=== PATIENT | male | born 1945 | race Hispanic/Latino ===

== ENCOUNTER 2024-07-18 15:04 | Inpatient (IN) | payer SELFPAY ==
[~2024-07-18] VITALS: Ht 165.1 cm; Wt 46.7 kg
--- NOTE | 2024-07-18 17:15 | HP ---
[facility] HISTORY AND PHYSICAL Date of Service: Jul 18, 2024 Time of Service: 17:15 HISTORY OF PRESENT ILLNESS: Date of service: 07/18/2024 This is 78-year-old male with past medical history of CAD, hypotension, hyperlipidemia, diabetes mellitus, history of stroke type 2 who presented to the hospital secondary to chest pain. Patient history is obtained from patient and from chart review. Patient initially presented to [facility] secondary to chest pain. Patient was previously hospitalized admission hospital around a month ago in May secondary to chest pain. During that admission patient underwent heart catheterization by Cardiology and was found to have multivessel disease. Patient is course was complicated by right lacunar infarct in the right cerebellum. Patient was recommended to recover from stroke and then follow up with Cardiothoracic surgery for consideration of CABG. Patient today presented to ER admission secondary to midsternal chest pain. Patient states the pain would radiate towards is left lower extremity. He denies any paresthesias, numbness, falls, syncopal episode, abdominal pain, nausea, vomit ing. Patient lives alone and uses a cane for ambulation. Denied any fever, chills, cough, shortness of breath, new onset upper or lower extremity weakness. Patient states he does have mild weakness on the left lower extremity. Labs and admission [facility] showed white count of 8.7, hemoglobin was 12.5, platelet count is 318k, sodium was 134, potassium was 3.6, creatinine was 0.8, blood glucose was 394. Patient was given aspirin, heparin drip. Cardiology was consulted and admission and recommended patient to be transferred to [facility] for evaluation of CABG. chest x-ray showed No acute findings Patient had undergone a previous heart catheterization by Dr. Collier on 05/29/2024 which showed 1. Left main coronary artery is medium in caliber heavily calcified with 50% distal disease. It bifurcates into left anterior descending artery and left circumflex artery. 2. Left anterior descending artery is a medium caliber vessel wrapping around the apex with 80% mid segmental disease. First diagonal is medium in caliber with mild disease not well visualized. The 2nd diagonal is tiny with 90% ostial disease. The 3rd diagonal is small in caliber with 50% disease 3. Left circumflex artery is a medium caliber vessel with 50% ostial disease. First obtuse marginal is medium in caliber with 30% mid segmental disease. Second obtuse marginal unless medium in caliber with 90% tight mid segmental disease and 40% distal disease in one of its lower branch. 4. Right coronary artery is heavily calcified in the proximal segment. It is a large caliber dominant vessel with 70% proximal disease. It gives off small to medium caliber posterior descending artery which has 50% proximal disease and 70% mid segment disease where the vessel is tortuous and proximal 50% PLV disease Patient was recommended to be evaluated in [facility] for consideration of CABG REVIEW OF SYSTEMS CONSTITUTIONAL: Denies fevers, chills, or night sweats. No unintentional weight loss reported. NEUROLOGICAL: Denies headache, amaurosis fugax, motor weakness, sensory defici t, vertigo/spinning sensation, gait abnormalities, or tremors. ENT: No hearing loss, otalgia, otorrhea, rhinitis, rhinorrhea, hoarseness, or sore throat. CARDIOVASCULAR: Positive for chest pain. Denied any Shortness of breath, PND orthopnea. PULMONARY: Denies any shortness of breath, cough, phlegm/sputum, hemoptysis, pleuritic chest pain. SLEEP: Denies morning headaches, daytime somnolence or napping. Denies difficulty falling asleep, staying asleep, waking from sleep. Denies knowledge of snoring. GASTROINTESTINAL: Denies any type of dysphagia to either liquids or solids. Denies nausea, vomiting, pyrosis, early satiety, abdominal pain, diarrhea, constipation, or changes in stool consistency or caliber. Denies coffee-ground emesis, hematemesis, hematochezia, or melanotic stools. GENITOURINARY: Denies frequency, urgency, nocturia, hematuria or incontinence (Storage/Irritative symptoms.) Low urinary stream, straining to void, urinary intermittency or hesitancy, splitting of the voiding stream, terminal dribbling. ENDOCRINOLOGIC: Denies polyuria, polydipsia, polyphagia or heat/cold intolerances. HEMATOLOGIC: Denies thrombophilia/previous clots, or coagulopathy/bleeding di sorders. ONCOLOGIC: Denies personal history of malignancy. DERMATOLOGIC: Denies rashes or pruritus. PSYCHIATRIC: Denies any suicidal or homicidal ideation. Denies hallucinations. PAST MEDICAL HISTORY: CAD, hypertension, hyperlipidemia, diabetes mellitus type 2, history of stroke with right lacunar infarct in the right cerebellum PAST SURGICAL HISTORY: History of heart catheterization PAST SOCIAL HISTORY: Denies smoking, alcohol, drug use FAMILY HISTORY: Denied any pertinent family history Coded Allergies: No Known Drug Allergies (Verified Allergy, Unknown, 07/18/24) PHYSICAL EXAM GENERAL APPEARANCE: The patient is awake, alert, and oriented, in no acute cardiopulmonary distress. NEUROLOGICAL: Cranial nerves II-XII grossly intact. Motor is 5/5 in bilateral upper and lower extremities proximal to distal. No sensory deficits. HEENT: Face is symmetric. Pupils are equal and reactive. Extraocular movements are intact. NECK: Supple. No JVD. No thyromegaly. No submental, submandibular, pre-/postauricular, occipital or supraclavicular lymphadenopathy. CHEST: Normal chest expansion. No Telemetry. LUNGS: Absence of any rales, rhonchi or any wheezing. CARDIOVASCULAR: Regular. S1 and S2 normal. No appreciable rubs, murmurs or gallops. ABDOMEN: Soft, nontender, and nondistended. There is no rebound, voluntary guarding, or rigidity. : Deferred. No [place]. EXTREMITIES: Non-edematous and not cyanotic. No clubbing. Good capillary refill. Pedal pulses are palpable SKIN: No skin breakdown. LABS: Labs have been reviewed DIAGNOSTICS / RADIOLOGY: [ ] ASSESSMENT: NSTEMI POA CAD status post left heart catheterization with multivessel disease POA History of chronic heart failure with EF of 35-40% History of right lacunar stroke in June 08, 2024 Hypertension Hyperlipidemia Diabetes mellitus type 2 Left lower extremity pain PLAN: - continue with admission in [facility] -in reference to NSTEMI. Patient will be started on heparin drip and aspirin. Consultation with Cardiology will be requested. Appreciate recommendations. We will also request consultation with CT surgery -obtain a lower extremity Doppler. Pain could be in setting of PVD versus neuropathic pain from recent stroke -start patient on amlodipine. Continue with metoprolol b.i.d.. We will titrate medication depending on blood pressure - check TSH, A1c, procaine, CRP, CBC, BMP - obtain home medications will be reconciled once available -further orders per hospitalization course. Plan of care was discussed with patient at bedside Advanced Care Planning Which of the following were discussed: Hospice care: Yes __ No _x_ Therapeutic options: Yes __ No __ Advance directives: Yes __ No __ Other discussions: Pt is full code Discussed with who?: patient (Patient, family or surrogates) Voluntary nature of this service was explained to the patient? Yes _x_ No __ Amount of time spent: 25 minutes ALMA Barrow MD, MD Jul 18, 2024 17:15
[2024-07-18] MEDS ORDERED: NITROGLYCERIN 0.4 MG SL TAB SL PRN (17:30)
[2024-07-18] MEDS ORDERED: hydrALAZine 20MG/ML VIAL IV PRN (17:30)
--- NOTE | 2024-07-18 17:33 | CONS ---
[facility] Cardiology Consultation Note CARDIOLOGY CONSULTATION JULY 18, 2024 Chief complaint: This is a 78-year-old male who was transferred from [facility] for aortocoronary bypass graft surgery. History of present illness: Patient underwent previous left heart catheterization about six weeks ago at [facility]. He was found to have significant left main disease with an ejection fraction of 35-40%. An appointment was made for him to see the CT surgeons but he was rehospitalized admission hospital because of worsening chest pain. He has been placed on heparin drip and nitrates and was transferred over for further evaluation. Past medical history: The patient had a lacunar infarct in May of this year. A repeat CT scan admission hospital showed no evidence of new infarct. He has a history of hypertension, diabetes mellitus type 2 and dyslipidemia. Review of systems: Has been having some intermittent left precordial pain. He has also been complaining of left knee pain and has to walk with a cane because of this. Denies any recent syncope PND or orthopnea. He has had some palpitations. Allergies: No known allergies Medications: At this point he is receiving heparin protocol amlodipine aspirin atorvastatin metoprolol tartrate potassium protocol and nitroglycerin p.r.n.. The patient has been receiving metformin and sacubitril as well as a nicotine patch prior to admission to [facility]. Surgical history: He denies prior surgery Social history: He used to smoke one or two cigars per week but is no longer smoking. Physical exam: Blood pressure 158 over 80. Heart rate is in the 70s and regular. There was no elevation of the jugular venous pressure left carotid bruit is noted. S1 normal S2 physiologically split. No murmur appreciable. Abdomen soft extremities show no edema. Posterior tibial pulses plus one dorsalis pedis pulses plus one. He is alert and oriented. Laboratory studies from [facility]: BUN 13 creatinine 0.8 troponin of 19 hemoglobin 12.5 platelet count [id number]. 2D echocardiogram. LV ejection fraction of 35-40%. There was mild aortic insufficiency. The aortic valve peak gradient of 7.5 mm Hg. Mild mitral regurgitation. Trace pulmonic regurgitation. Assessment: 1. Unstable angina 2. Multivessel CAD with left main involvement and LV ejection fraction of 35-40% 3. Left carotid bruit 4. History of lacunar infarcts May 2024 5. Hypertension 6. Diabetes mellitus type 2 7. Dyslipidemia Plan: 1. Surgery we will review the films and make recommendations. I will order a carotid Doppler because of his left carotid bruit. We will continue with his current regimen in the interim. WOLFGANG LOMELI MD Jul 18, 2024 17:33
[2024-07-18] MEDS ORDERED: ASPI-1005 PO (17:34)
[2024-07-18] MEDS ORDERED: METO-408 PO (17:34)
[2024-07-18] MEDS ORDERED: ATOR40TA69 PO (17:34)
[2024-07-18] MEDS ORDERED: ISOS30TA92 PO (17:34)
[2024-07-18 17:47] LABS: BASOPHILS # (AUTO) 0.05 K/uL (0.00-0.20); BASOPHILS % (AUTO) 0.6 % (0.0-5.0); EOSINOPHILS # (AUTO) 0.96 K/uL (0.00-0.70); EOSINOPHILS % (AUTO) 11.9 % (0.0-8.0); HEMATOCRIT 37.3 % (42-54); IMMATURE GRANULOCYTE ABSOLUTE 0.04 K/uL (0-1); LYMPHOCYTES # (AUTO) 1.7 K/uL (1.0-4.8); LYMPHOCYTES % (AUTO) 21.1 % (21.0-51.0); MEAN CORPUSCULAR HGB CONC 34.3 g/dL (32.0-36.0); MEAN CORPUSCULAR VOLUME 93.3 fL (79-99); MONOCYTES # (AUTO) 0.7 K/uL (0.1-1.0); MONOCYTES % (AUTO) 9.1 % (3.0-13.0); NEUTROPHILS # (AUTO) 4.6 K/uL (1.8-7.7); NEUTROPHILS % (AUTO) 56.8 % (40.0-77.0); PLATELET COUNT (AUTO) 300 K/uL (130-400); RED CELL DISTRIBUTION WIDTH 12.6 % (11.0-15.5); WHITE BLOOD COUNT (AUTO) 8.1 K/uL (4.8-10.8)
[2024-07-18 17:50] VITALS: BP 121/67; PULSE 60; RESP 18; TEMP 97.8
[2024-07-18] MEDS: HEParin 25,000 UNITS/250ML D5W 250 ML IV SCH (18:00)
[2024-07-18 18:02] LABS: HEMOGLOBIN A1C 11.9 % (4.0-6.0)
[2024-07-18 18:15] LABS: ALBUMIN 3.4 g/dL (3.5-5.0); BILIRUBIN,TOTAL 0.5 mg/dL (0.2-1.0); CREATININE 0.6 mg/dL (0.5-1.3); POTASSIUM 3.7 mmol/L (3.5-5.1); THYROID STIMULATING HORMONE 6.64 uIU/mL (0.36-3.74); TOTAL PROTEIN, SERUM 7.1 g/dL (6.0-8.3)
[2024-07-18] MEDS: amLODIPine 5 MG TAB PO ONE (18:17)
[2024-07-18 18:22] VITALS: O2SAT 100
--- NOTE | 2024-07-18 19:27 | HMCIMG ---
CHEST 1VW REASON: cHEST PAIN COMPARISON: 07/18/2024 FINDINGS: Single view of the chest was obtained. Lungs are clear. Heart size is normal. There is no pulmonary vascular congestion. Mediastinum and bony thorax appear unremarkable. IMPRESSION: 1. Normal single view chest x-ray.
--- NOTE | 2024-07-18 19:29 | HMCIMG ---
KNEE 3VWS LT REASON: knee pain TECHNIQUE: 3 views were obtained. FINDINGS: There is no evidence of fracture or dislocation. There is no joint effusion. The soft tissues appear unremarkable. There is no evidence of a radiopaque foreign body. There is mild medial joint space narrowing consistent with early osteoarthritis. IMPRESSION: No acute findings.
--- NOTE | 2024-07-18 19:42 | HMCIMG ---
HIP UNILAT 2-3VW LEFT REASON: knee pain TECHNIQUE: 2 views were obtained. FINDINGS: There is no evidence of fracture or dislocation. There is no joint effusion. The soft tissues appear unremarkable. There is no evidence of a radiopaque foreign body. IMPRESSION: No acute findings.
[2024-07-18 20:00] VITALS: O2SAT 100
[2024-07-18 20:16] VITALS: BP 115/57; PULSE 71; RESP 18; TEMP 98.2
[2024-07-18] MEDS: HEParin 5,000 UNIT VIAL IV PRN (20:48)
--- NOTE | 2024-07-18 22:04 | HMCIMG ---
US ARTERIAL BILAT LOW EXT DUPL HISTORY: Peripheral vascular disease COMPARISON: None TECHNIQUE: Bilateral lower extremity arterial Doppler ultrasound study was performed. FINDINGS: Normal triphasic and biphasic arterial waveforms are noted in the common femoral, deep femoral, superficial femoral, popliteal, posterior tibial and dorsalis pedal arteries. There is mild at this diffuse multilevel atherosclerotic plaques throughout the bilateral lower extremities On the right, the peak systolic velocity of the common femoral artery is 67 cm/s, the proximal femoral artery is 71 cm/s, the mid femoral artery is 49 cm/s, the distal femoral artery is 109 cm/s, the popliteal artery is 43 cm/s, the anterior tibial artery is 40 cm/s, the posterior tibial artery artery is 37 cm/s. On the left, the peak systolic velocity of the common femoral artery is 69 cm/s, the proximal femoral artery is 78 cm/s, the mid femoral artery is 68 cm/s, the distal femoral artery is 65 cm/s, the popliteal artery is 81 cm/s, the anterior tibial artery is 36 cm/s, the posterior tibial artery artery is 56 cm/s. IMPRESSION: 1. Atherosclerotic disease. 2. Otherwise normal triphasic and biphasic arterial waveforms noted of the lower extremity artery system.
[2024-07-18] MEDS: metoPROLOL tartRATE 25 MG TAB PO SCH (23:06)
[2024-07-18] MEDS: atorVAStatin 40 MG TABLET PO SCH (23:06)
[2024-07-18] MEDS: FAMOTIDINE 20MG VIAL IV SCH (23:06)
[2024-07-18] MEDS: INSULIN humuLIN R 100 UNIT/ML 3ML SQ SCH (23:07)
[2024-07-18] MEDS: INSULIN GLARgine 100 UNITS/ML 10 ML VIAL SQ SCH (23:09)
[2024-07-18] MEDS: NITROGLYCERIN 50MG/D5W 250ML 250 BOT IV SCH (23:12)
[2024-07-19] VITALS (43 sets, daily range): BP systolic 97–155; BP diastolic 37–78; PULSE 57–77; RESP 5–48; TEMP 97.6–99; O2SAT 98–100
[2024-07-19 02:18] LABS: BASOPHILS # (AUTO) 0.04 K/uL (0.00-0.20); BASOPHILS % (AUTO) 0.5 % (0.0-5.0); EOSINOPHILS # (AUTO) 1.04 K/uL (0.00-0.70); EOSINOPHILS % (AUTO) 11.8 % (0.0-8.0); HEMATOCRIT 33.2 % (42-54); IMMATURE GRANULOCYTE ABSOLUTE 0.04 K/uL (0-1); LYMPHOCYTES # (AUTO) 1.8 K/uL (1.0-4.8); LYMPHOCYTES % (AUTO) 20.7 % (21.0-51.0); MEAN CORPUSCULAR HEMOGLOBIN 31.9 pg (27.0-33.0); MEAN CORPUSCULAR HGB CONC 34.9 g/dL (32.0-36.0); MEAN CORPUSCULAR VOLUME 91.2 fL (79-99); MONOCYTES # (AUTO) 0.9 K/uL (0.1-1.0); NEUTROPHILS % (AUTO) 56.5 % (40.0-77.0); PLATELET COUNT (AUTO) 313 K/uL (130-400); RED BLOOD CELL COUNT(AUTO) 3.64 MIL/uL (4.50-6.20); RED CELL DISTRIBUTION WIDTH 12.7 % (11.0-15.5); WHITE BLOOD COUNT (AUTO) 8.8 K/uL (4.8-10.8)
[2024-07-19 02:26] LABS: CREATININE 0.8 mg/dL (0.5-1.3); MAGNESIUM 1.4 mg/dL (1.80-2.40); POTASSIUM 3.2 mmol/L (3.5-5.1)
--- NOTE | 2024-07-19 06:27 | EKG ---
[facility] Test Date: 2024-07-18 Test Time: 17:38:09 Pat Name: MANOJ BLANTON Department: 2CV Room: 211 1 Gender: M Balance Bridge Inspector: [id number] : 1945 Requested By: ALMA LE Order Number: [id number] Reading MD: Edwardo Moore Measurements Intervals [place] Rate: 64 P: 60 VA: 146 QRS: 47 QRSD: 84 T: 48 QT: 430 QTc: 443 Interpretive Statements Normal sinus rhythm Nonspecific T wave abnormality No previous ECG available for comparison Electronically Signed On 07-19-2024 19:56:57 CDT by Edwardo Moore Please click the below link to view image of tracing.
--- NOTE | 2024-07-19 06:27 | EKG ---
[facility] Test Date: 2024-07-18 Test Time: 21:42:49 Pat Name: MANOJ BLANTON Department: 2CV Room: 211 1 Gender: M Internal Communications Intern: [id number] : 1945 Requested By: WOLFGANG LOMELI Order Number: [id number] Reading MD: Edwardo Moore Measurements Intervals [place] Rate: 71 P: 61 ID: [id number] QRS: 43 QRSD: 86 T: -38 QT: 414 QTc: 449 Interpretive Statements Normal sinus rhythm Possible anterior injury. Abnormal QRS-T angle, consider primary T wave abnormality Compared to ECG 07/18/2024 17:38:09 No significant changes Electronically Signed On 07-19-2024 20:05:16 CDT by Edwardo Moore Please click the below link to view image of tracing.
--- NOTE | 2024-07-19 06:56 | PN ---
[facility] Cardiology Progress Note Cardiology consultation July 19 2024 Problems: 1. Non ST-elevation myocardial infarction 2. Multivessel CAD with left main involvement and LV ejection fraction of 35-40% at left heart catheterization admission hospital approximately six weeks ago 3. Left carotid bruit 4. History of lacunar infarcts May 2024 5. Hypertension 6. Diabetes mellitus type 2 7. Dyslipidemia Blood pressure this morning is ranging between 101 30 systolic heart rate is 60 per minute. The patient is in sinus rhythm. He denies any chest pain. Electrocardiogram on admission showed tall peaked T-waves in V2 which did not meet STEMI criteria. Laboratory studies [place] [address]. Repeat EKG at that time showed again child PT waves with some minimal ST elevation in V2 but did not meet STEMI criteria. Patient has been treated with intravenous nitroglycerin beta blockers and heparin and remains pain-free. Carotid Doppler study is pending. 2D echocardiogram will be ordered. Given the significant troponin rise since admission to [facility] I believe repeat catheterization is warranted prior to aortocoronary bypass graft surgery. Risks and benefits have been reviewed with the patient understands and requests to proceed. WOLFGANG LOMELI MD Jul 19, 2024 06:56
[2024-07-19] MEDS ORDERED: 0.9% NACL 500ML IV.SOLN 500 ML IV SCH (07:00)
[2024-07-19] MEDS: PoTASSium chloRIDE 20MEQ/100ML 100 ML IV PRN (07:34)
[2024-07-19] MEDS ORDERED: IOHEXOL 350 MG/ML 100ML INFUS..BTL IV ONE (08:25)
[2024-07-19] MEDS ORDERED: LIDOCAINE HCL 400MG/20ML VIAL ONE (08:25)
[2024-07-19] MEDS ORDERED: NITROGLYCERIN 50MG VIAL ONE (08:26)
[2024-07-19] MEDS ORDERED: HEParin-NS 1,000 UNIT/500 ML 1,000 ML IV ONE (08:26)
[2024-07-19] MEDS ORDERED: BIVALIRUDIN 250 MG/VIAL IV ONE (08:42)
[2024-07-19] MEDS ORDERED: FENTanyl CITRate PF 50 MCG/1 ML 2ML VIAL ONE (08:57)
[2024-07-19] MEDS ORDERED: MIDAZOLAM HCL 1 MG/ML 2ML VIAL ONE (08:58)
[2024-07-19] MEDS: amLODIPine 5 MG TAB PO SCH (09:00)
[2024-07-19] MEDS ORDERED: IOHEXOL-350 50ML VIAL IV ONE (09:04)
--- NOTE | 2024-07-19 09:13 | HMCIMG ---
US CAROTID DUPLEX REASON: H/O CVA, left carotid bruit TECHNIQUE: Exam was performed using spectral analysis and color flow imaging. FINDINGS: Color flow Doppler ultrasound shows the calcified plaque in both carotid bifurcations, mild on the left and moderate on the right. There are tortuous vessels on the right. There are elevated flow velocities and velocity ratios on the right suggesting a 50-70% stenosis. There is no hemodynamic evidence of stenosis on the left. There is antegrade flow in both vertebral arteries. RIGHT CAROTID: CCA: 38 cm/sec ICA: 94 cm/sec Ratio: ICA/CCA: 2.5 ECA: 30 cm/sec Vertebral artery: 46 cm/sec LEFT CAROTID: CCA: 53 cm/sec ICA: 59 cm/sec Ratio: ICA/CCA: 1.1 ECA: 54 cm/sec Vertebral artery: 47 cm/sec IMPRESSION: 1. Moderate calcified plaque right bifurcation, there are tortuous vessels, there are flow velocities and velocity ratios suggesting a 50-70% stenosis. 2. Mild plaque on the left without evidence of stenosis. 3. Antegrade flow in both vertebral arteries.
[2024-07-19] MEDS: ASPIRIN 81MG CHEW TAB PO SCH (09:46)
--- NOTE | 2024-07-19 09:46 | PRN ---
Cath Procedure Report CATH PROCEDURE REPORT CARDIAC CATHETERIZATION REPORT Date of Service: Jul 19, 2024 This patient was transferred for aortocoronary bypass graft [place] [address] consistent with non STEMI on admission. After informed consent he was prepped and draped in the usual fashion. He received 10 cc of 2% xylocaine in the right inguinal area. A six Tamazight sheath was introduced into the right femoral artery using modified Seldinger technique. A Sheri four right six Tamazight diagnostic catheter was advanced over guidewire to the aortic root. Wire was removed and catheter engaged into the [place] right coronary artery which was visualized multiple planes. The catheter was exchanged over a wire for a Sheri four left six Tamazight diagnostic catheter. This was advanced to the aortic root and wire was removed. The catheter was engaged in the left main coronary artery left coronary system was visualized multiple planes. The catheter was then exchanged over a wire for a pigtail catheter which was advanced over guidewire. The catheter would not cross the aortic valve and the J-wire was exchanged for a straight wire which was utilized across the valve. Left ventricular end-diastolic pressure was measured and a ventriculogram in the MALIK projection was performed. A pullback with continuous hemodynamic monitoring was performed and catheter was removed. ACT postprocedure was less than 200. A sheathogram performed and Angio-Seal closure device applied. Findings: The right coronary artery is a right-dominant vessel. There was an 80% ostial stenosis followed by a 70% proximal stenosis. The posterolateral branch has a long 50% proximal stenosis. The PDA has a proximal 50 and proximal 70% stenosis. The left main coronary artery has a 50% distal stenosis. There was a 50% ostial LAD stenosis and a long 70% ulcerated mid LAD stenosis with normal ACACIA flow. The diagonal artery was free of obstruction. There was a ramus branch which is free of obstruction. The circumflex artery has an 80% ostial stenosis. First large branching obtuse marginal artery has a proximal 80% stenosis. Left ventriculogram demonstrates mild hypokinesis of the anterior wall with global ejection fraction around 40%. There was trace mitral regurgitation. Aortic stenosis was mild with a 10 mm peak to peak gradient. Surgical opinion will be obtained. Report dictated by WOLFGANG Gates MD, MD Jul 19, 2024 09:46
[2024-07-19 10:15] LABS: ABG BASE EXCESS 3.4 mmol/L (-2.0-3.0); ABG HCO3 27.6 mmol/L (21.0-28.0); ABG OXYGEN SATURATION 96.9 % (94.0-98.0); ABG PCO2 41 mmHg (35-48); ABG PH 7.451 (7.350-7.450); CARBON MONOXIDE 0.3 % (0.5-1.5); HHb 3.1; PO2, ARTERIAL BG 94.1 mmHg (83.0-108.0); VENT MODE, BG RA (ROOM AIR)
[2024-07-19] MEDS: PoTASSium chloRIDE 20MEQ ER 20 MEQ ERTAB PO PRN (10:34)
--- NOTE | 2024-07-19 11:35 | PN ---
[facility] PROGRESS NOTE Date of Service: Jul 19, 2024 Time of Service: 11:17 SUBJECTIVE: 07/19 Pt seen at bedside, no acute events overnight. Pt seen with CV surgery at bedside, pt initially saying he does not want surgical intervention. CV surgery planning to discuss with family as well to make sure patient understands what is needed and that he is making an informed decision, will follow up with medical plan. Pt continues on Nitro and heparin drips. He is hemodynamically stable, troponins are elevated and downtrending. Vitals are otherwise unremarkable REVIEW OF SYSTEMS 12 point ROS negative unless noted in HPI PHYSICAL EXAM GENERAL APPEARANCE: The patient is awake, alert, and oriented, in no acute cardiopulmonary distress. NEUROLOGICAL: Cranial nerves II-XII grossly intact. Motor is 5/5 in bilateral upper and lower extremities proximal to distal. No sensory deficits. HEENT: Face is symmetric. Pupils are equal and reactive. Extraocular movements are intact. NECK: Supple. No JVD. No thyromegaly. No submental, submandibular, pre- /postauricular, occipital or supraclavicular lymphadenopathy. CHEST: Normal chest expansion. No Telemetry. LUNGS: Absence of any rales, rhonchi or any wheezing. CARDIOVASCULAR: Regular. S1 and S2 normal. No appreciable rubs, murmurs or gallops. ABDOMEN: Soft, nontender, and nondistended. There is no rebound, voluntary guarding, or rigidity. : Deferred. No [place]. EXTREMITIES: Non-edematous and not cyanotic. No clubbing. Good capillary refill. Pedal pulses are palpable SKIN: No skin breakdown. Vital Signs (last 8hr) Date Time Temp Pulse Resp B/P (MAP) Pulse Ox O2 Delivery O2 Flow Rate FiO2 07/19/24 08:15 61 19 133/74 98 Room Air 07/19/24 08:00 59 17 120/61 98 Room Air 07/19/24 08:00 100 Room Air* 0 21 07/19/24 07:45 60 29 121/59 98 Room Air 07/19/24 07:30 61 20 132/76 99 Room Air 07/19/24 07:15 59 29 126/67 99 Room Air 07/19/24 07:00 97.9 62 13 126/70 99 Room Air 07/19/24 06:18 60 17 129/73 98 Room Air 07/19/24 05:49 68 25 101/62 98 Room Air 07/19/24 05:33 66 22 115/72 98 Room Air 07/19/24 05:18 61 21 115/67 99 Room Air 07/19/24 05:03 57 19 108/61 97 Room Air 07/19/24 04:53 57 14 124/61 99 Room Air 07/19/24 04:36 57 19 119/65 99 Room Air 07/19/24 04:18 58 14 112/64 100 Room Air 07/19/24 04:06 60 20 115/63 99 Room Air 07/19/24 04:00 98 Room Air* 0 21 07/19/24 04:00 97.5 07/19/24 03:33 62 20 97/55 98 Room Air 07/19/24 03:33 62 20 97/55 98 07/19/24 03:18 64 23 100/37 99 Room Air LABS: Laboratory: Test 07/19/24 10:13 07/19/24 07:12 07/19/24 02:12 07/18/24 17:40 Range/Units Blood Gas Specimen Type Arterial Arterial Blood pH 7.451 H 7.350-7.450 Arterial Blood Partial Pressure CO2 41 35-48 mmHg Arterial Blood Partial Pressure O2 94.1 83.0-108.0 mmHg Arterial Blood HCO3 27.6 21.0-28.0 mmol/L Arterial Blood Oxygen Saturation 96.9 94.0-98.0 % Arterial Blood Base Excess 3.4 H -2.0-3.0 mmol/L Hemoglobin (Blood Gas) 13.0 L 13.5-17.5 g/dL Sodium (Blood Gas) 138 136-145 MMOL/L Bedside Potassium (Blood Gas) 3.9 3.4-4.5 MMOL/L Bedside Chloride (Blood Gas) 102 98-107 MMOL/L Bedside Glucose (Blood Gas) 114 H 65-95 MG/DL Bedside Ionized Calcium (Blood Gas) 1.16 1.15-1.33 MMOL/L Bedside Lactic Acid (Blood Gas) 0.79 H 0.36-0.75 MMOL/L Blood Gas Temperature 37.0 35.5-37.0 CELSIUS Blood Gas Vent Mode RA ROOM AIR FiO2 21.0 % Blood Gas Specimen Comment [facility] Whole Blood Glucose 102 # 70-110 MG/DL White Blood Count 8.8 4.8-10.8 K/uL Red Blood Count 3.64 L 4.50-6.20 MIL/uL Hemoglobin 11.6 L 14.0-18.0 g/dL Hematocrit 33.2 L 42-54 % Mean Corpuscular Volume 91.2 79-99 fL Mean Corpuscular Hemoglobin 31.9 27.0-33.0 pg Mean Corpuscular Hemoglobin Concent 34.9 32.0-36.0 g/dL Red Cell Distribution Width 12.7 11.0-15.5 % Platelet Count 313 130-400 K/uL Mean Platelet Volume 9.9 7.5-10.5 fL Immature Granulocyte % (Auto) 0.5 0-1 % Neutrophils (%) (Auto) 56.5 40.0-77.0 % Lymphocytes (%) (Auto) 20.7 L 21.0-51.0 % Monocytes (%) (Auto) 10.0 3.0-13.0 % Eosinophils (%) (Auto) 11.8 H 0.0-8.0 % Basophils (%) (Auto) 0.5 0.0-5.0 % Neutrophils # (Auto) 5.0 1.8-7.7 K/uL Lymphocytes # (Auto) 1.8 1.0-4.8 K/uL Monocytes # (Auto) 0.9 0.1-1.0 K/uL Eosinophils # (Auto) 1.04 H 0.00-0.70 K/uL Basophils # (Auto) 0.04 0.00-0.20 K/uL Absolute Immature Granulocyte (auto 0.04 0-1 K/uL Nucleated Red Blood Cells 0.0 0.0-0.19 % Activated Partial Thromboplast Time 36.2 H 26.3-35.5 SEC Sodium Level 136 136-145 mmol/L Potassium Level 3.2 L 3.5-5.1 mmol/L Chloride Level 100 L 101-111 mmol/L Carbon Dioxide Level 34 H 21-32 mmol/L Blood Urea Nitrogen 23 H 7-18 mg/dL Creatinine 0.8 0.5-1.3 mg/dL Glomerular Filtration Rate Calc 91 >90 mL/min Random Glucose 110 H 70-105 mg/dL Total Calcium 8.8 8.5-10.1 mg/dL Magnesium Level 1.40 L 1.80-2.40 mg/dL Troponin I High Sensitivity 02350 *H 4-75 ng/L Hemoglobin A1c 11.9 H 4.0-6.0 % Estimated Average Glucose (eAG) 295 H 70-126 mg/dL Total Bilirubin 0.5 0.2-1.0 mg/dL Aspartate Amino Transf (AST/SGOT) 74 H 10-37 U/L Alanine Aminotransferase (ALT/SGPT) 27 12-78 U/L Alkaline Phosphatase 107 50-136 U/L C-Reactive Protein, Quantitative 3.20 H 0.5-3.0 mg/L Total Protein 7.1 6.0-8.3 g/dL Albumin 3.4 L 3.5-5.0 g/dL Procalcitonin < 0.05 L 0.05-0.5 ng/mL Thyroid Stimulating Hormone (TSH) 6.64 H 0.36-3.74 uIU/mL Current Medications Medications (Trade) Dose Ordered Sig/Ben Route PRN Reason Start Time Stop Time Status Last Admin Dose Admin Acetaminophen (TYLenol 500MG TAB) 500 mg Q6H PRN PO MILD PAIN (1-3) 07/18/24 17:30 08/17/24 17:29 Amlodipine Besylate (NorvASC 5MG TAB) 5 mg DAILY PO 07/19/24 09:00 08/18/24 08:59 Aspirin (Aspirin 81mg Chew Tab) 81 mg DAILY PO 07/19/24 09:00 08/18/24 08:59 07/19/24 09:46 81 MG Atorvastatin Calcium (LIPItor 40MG) 40 mg HS PO 07/18/24 21:00 08/17/24 20:59 07/18/24 23:06 40 MG Famotidine (Pepcid 20mg Vial) 20 mg BID IV 07/18/24 21:00 08/17/24 20:59 07/19/24 09:46 20 MG Heparin Sodium (Porcine) (HEParin 5,000 UNIT VIAL) *calculation based on ACTUAL B... AD PRN IV HEPARIN PROTOCOL 07/18/24 18:00 08/17/24 17:59 07/18/24 20:48 3,750 UNIT Heparin Sodium/ Dextrose 250 ml @ 0 mls/hr Q6H IV 07/18/24 18:00 08/17/24 17:59 Hydralazine HCl (APRESOLine 20MG INJ) 10 mg Q6H PRN IV ADMINISTER FOR SBP > 180 07/18/24 17:30 08/17/24 17:29 Insulin Glargine (LANtus 100 UNITS/ML 10 ML VIAL) 10 units HS SQ 07/18/24 21:00 08/17/24 20:59 07/18/24 23:09 10 UNITS Insulin Human Regular (humuLIN R 100 UNIT/ML 3ML) INSULIN SLIDING SCAL... ACHS SQ 07/18/24 21:00 08/17/24 20:59 07/18/24 23:07 7 UNIT Metoprolol Tartrate (loprESSOR) 25 mg BID PO 07/18/24 21:00 08/17/24 20:59 07/18/24 23:06 25 MG Nitroglycerin (Nitrostat) 0.4 mg AD PRN SL CHEST PAIN 07/18/24 17:30 08/17/24 17:29 Nitroglycerin/ Dextrose 250 ml @ 0 mls/hr AD IV 07/18/24 22:30 08/17/24 22:29 07/18/24 23:12 0 MLS/HR Potassium Chloride 100 ml @ 100 mls/hr AD PRN IV POTASSIUM PROTOCOL 07/18/24 17:30 08/17/24 17:29 07/19/24 07:34 100 MLS/HR Potassium Chloride (K-Dur/Klor-Con 20meq) 20 meq AD PRN PO POTASSIUM PROTOCOL 07/18/24 17:30 08/17/24 17:29 07/19/24 10:35 20 MEQ Potassium Chloride (KCl 10% Elixir 20meq/15ml) 20 meq AD PRN PO POTASSIUM PROTOCOL 07/18/24 17:30 08/17/24 17:29 Sodium Chloride 500 ml @ 0 mls/hr Q0M IV 07/19/24 07:00 08/18/24 06:59 DIAGNOSTICS / RADIOLOGY: [ ] ASSESSMENT: NSTEMI POA CAD status post left heart catheterization with multivessel disease POA History of chronic heart failure with EF of 35-40% History of right lacunar stroke in June 08, 2024 Hypertension Hyperlipidemia Diabetes mellitus type 2 Left lower extremity pain PLAN: - continue ICU - Continue Heparin drip - Continue nitro drip - Continue telemetry - Continue aspirin 81mg q24h - Continue amlodipine 5mg q24h - Continue sliding scale - Continue hypoglycemia protocol - Echo pending will follow up - Cardiology consulted, appreciate recommendations - CV Surgery consulted, appreciate recommendations Disposition: Pending surgery vs medical management SELMA VELÁSQUEZ MD Jul 19, 2024 11:35
--- NOTE | 2024-07-19 16:43 | CONS ---
[facility] CONSULTATION NOTE Date Patient Seen: Jul 19, 2024 Time of Visit: 16:38 Supervising Physician: Dr. Shamar Nieves Reason for Consultation: [facility] Primary Care Physician: No PCP- uninsured Outpatient Specialists: NA Inpatient Consults: Dr. Nieves, Dr. Weaver, Dr. Simpson PROBLEM LIST: Acute chest pain secondary to below Non STEMI Status post left heart catheterization on 07/19/2023 with finding of multivessel coronary artery disease and mild aortic stenosis, LVEF 40% Multivessel coronary artery disease Hypokalemia Hyperglycemia in the setting of type 2 diabetes mellitus Hypomagnesemia History of CVA, CAD, hyperlipidemia, diabetes mellitus, hypertension, former light smoker HPI: This is a 78 year old male with past medical history of CAD, hyperlipidemia, diabetes mellitus, hypertension, CVA, former light cigarette smoker who came to [facility] from [facility] for chest pain. Patient had left heart catheterization a few weeks ago with finding of CAD. Today, patient underwent another left heart catheterization and patient was found to have CAD and patient was consulted to cardiovascular surgery. Patient is in ICU secondary to nitroglycerin drip management and NSTEMI. PAST MEDICAL HX: see above PAST SURGICAL HX: noncontributory SOCIAL HISTORY: Light tobacco use, 3 cigarette a day, smoked for only 5 years, quit many years ago Denies ETOH abuse Denies illicit drug use Coded Allergies: No Known Drug Allergies (Verified Allergy, Unknown, 07/18/24) REVIEW OF SYSTEMS: 12 point ROS reviewed with patient. Pertinent positives mentioned above. Otherwise negative. PHYSICAL EXAM: GENERAL: alert, weak, awake oriented x 3 HEENT: EOMI, Sclera non icteric, moist mucosa NECK: Supple, no JVD, trachea midline LUNGS: Clear breath sounds bilaterally. No wheezes HEART: Regular rate and rhythm. Normal S1 and S2, without murmurs ABD: Abdomen soft, nontender. Bowel sounds present EXT: No clubbing cyanosis or edema NEURO: Alert and oriented to person, follows commands Vital Signs (last 8hr) Date Time Temp Pulse Resp B/P (MAP) Pulse Ox O2 Delivery O2 Flow Rate FiO2 07/19/24 14:00 72 14 114/67 (83) 96 07/19/24 13:45 70 5 124/66 (85) 98 07/19/24 13:30 69 16 135/63 (87) 97 07/19/24 13:15 72 20 117/62 (80) 97 07/19/24 13:00 72 32 155/68 (97) 98 07/19/24 12:45 69 18 116/66 (83) 99 07/19/24 12:30 70 23 126/58 (80) 98 07/19/24 12:15 77 14 139/67 (91) 99 07/19/24 12:00 98.1 73 43 114/69 (84) 97 07/19/24 12:00 100 Room Air* 0 21 07/19/24 11:45 69 17 123/68 100 Room Air 07/19/24 11:45 69 17 123/68 (86) 100 07/19/24 11:30 63 20 138/67 100 Room Air 07/19/24 11:30 63 48 138/67 (90) 100 07/19/24 11:15 64 20 134/78 98 Room Air 07/19/24 11:15 64 31 134/78 (96) 98 07/19/24 11:00 65 18 124/65 (84) 100 07/19/24 11:00 65 18 124/65 100 Room Air 07/19/24 10:45 66 20 120/61 (80) 97 07/19/24 10:45 66 24 120/61 97 Room Air 07/19/24 10:30 66 21 115/63 98 Room Air 07/19/24 10:30 66 21 115/63 (80) 98 07/19/24 10:15 67 15 127/68 (87) 99 07/19/24 10:15 67 15 127/68 99 Room Air 07/19/24 09:45 64 21 99 LABS: Hematology Labs: Test 07/19/24 02:12 Range/Units White Blood Count 8.8 4.8-10.8 K/uL Red Blood Count 3.64 L 4.50-6.20 MIL/uL Hemoglobin 11.6 L 14.0-18.0 g/dL Hematocrit 33.2 L 42-54 % Mean Corpuscular Volume 91.2 79-99 fL Mean Corpuscular Hemoglobin 31.9 27.0-33.0 pg Mean Corpuscular Hemoglobin Concent 34.9 32.0-36.0 g/dL Red Cell Distribution Width 12.7 11.0-15.5 % Platelet Count 313 130-400 K/uL Mean Platelet Volume 9.9 7.5-10.5 fL Immature Granulocyte % (Auto) 0.5 0-1 % Neutrophils (%) (Auto) 56.5 40.0-77.0 % Lymphocytes (%) (Auto) 20.7 L 21.0-51.0 % Monocytes (%) (Auto) 10.0 3.0-13.0 % Eosinophils (%) (Auto) 11.8 H 0.0-8.0 % Basophils (%) (Auto) 0.5 0.0-5.0 % Neutrophils # (Auto) 5.0 1.8-7.7 K/uL Lymphocytes # (Auto) 1.8 1.0-4.8 K/uL Monocytes # (Auto) 0.9 0.1-1.0 K/uL Eosinophils # (Auto) 1.04 H 0.00-0.70 K/uL Basophils # (Auto) 0.04 0.00-0.20 K/uL Absolute Immature Granulocyte (auto 0.04 0-1 K/uL Nucleated Red Blood Cells 0.0 0.0-0.19 % Chemistry Labs: Test 07/19/24 11:52 07/19/24 02:12 07/18/24 17:40 Range/Units Whole Blood Glucose 217 #H 70-110 MG/DL Sodium Level 136 136-145 mmol/L Potassium Level 3.2 L 3.5-5.1 mmol/L Chloride Level 100 L 101-111 mmol/L Carbon Dioxide Level 34 H 21-32 mmol/L Blood Urea Nitrogen 23 H 7-18 mg/dL Creatinine 0.8 0.5-1.3 mg/dL Glomerular Filtration Rate Calc 91 >90 mL/min Random Glucose 110 H 70-105 mg/dL Total Calcium 8.8 8.5-10.1 mg/dL Magnesium Level 1.40 L 1.80-2.40 mg/dL Troponin I High Sensitivity 76047 *H 4-75 ng/L Hemoglobin A1c 11.9 H 4.0-6.0 % Estimated Average Glucose (eAG) 295 H 70-126 mg/dL Total Bilirubin 0.5 0.2-1.0 mg/dL Aspartate Amino Transf (AST/SGOT) 74 H 10-37 U/L Alanine Aminotransferase (ALT/SGPT) 27 12-78 U/L Alkaline Phosphatase 107 50-136 U/L C-Reactive Protein, Quantitative 3.20 H 0.5-3.0 mg/L Total Protein 7.1 6.0-8.3 g/dL Albumin 3.4 L 3.5-5.0 g/dL Procalcitonin < 0.05 L 0.05-0.5 ng/mL Thyroid Stimulating Hormone (TSH) 6.64 H 0.36-3.74 uIU/mL Coagulation Labs: Test 07/19/24 10:48 Range/Units Activated Partial Thromboplast Time 28.2 26.3-35.5 SEC DIAGNOSTICS / RADIOLOGY RESULTS: [ ] PLAN NEURO: Minimize central acting medications as possible. Fall Precautions. Well lighted room through the day and minimize interruptions through the night to prevent acute delirium. PULMONARY: Supplemental 02 as needed Titrate Fio2 to keep Spo2 > or = 90% DuoNebs and CPT as needed IS hourly while awake for pulmonary hygiene Out of bed to chair as tolerated VAP Bundle CARDIOVASCULAR: Follow hemodynamics. Titrate vasopressor to keep MAP >65 or systolic blood pressure >95mmHg DRIPS: Nitroglycerin Heparin LINES: PIV GI & NUTRITION: Continue nutritional support Aspirations precautions Prokinetic agents and laxatives as needed KIDNEYS & ELECTROLYTES: Strict monitoring of intake and output Daily weights Avoid nephrotoxic agents Monitor electrolytes and replace as needed Goal urine output of 30mL/hr or 0.5mL/kg/hr ENDOCRINE: Maintain blood glucose between 100-180 at all times. Insulin sliding scale for blood glucose management INFECTIOUS DISEASE: Trend temperature. Dozier-culture if febrile. Micro: NA Antibiotics: NA HEMATOLOGY & COAGULATION: Monitor H&H. Keep Hgb > 7 Transfuse 1 unit of PRBC for Hgb < 7 Transfuse 1 pack of platelets of platelets < 20, 000 Watch for any signs and symptoms of bleeding SKIN: Pressure ulcer prevention per facility protocol Rehab: PT/OT Prophylaxis: GI: Pepcid DVT: Heparin Code Status: Full Resuscitation Disposition: Downgrade to PCCU if off NTG drip and stable Other: Total patient care time exceeds 35 minutes excluding all procedures. Case was discussed and seen with my supervising physician. The above plan was formulated and agreed upon. S[facility]IDO [facility] Jul 19, 2024 16:43
--- NOTE | 2024-07-19 19:29 | HMCSR ---
APPROVED REPORT EXAM: Two-dimensional and M-mode echocardiogram with Doppler and color Doppler. Study Details: Hx: CAD, hypotension, hyperlipidemia, diabetes mellitus, stroke INDICATION ICD: NSTEMI 2D Dimensions RVDd3.0 cmLVEF(%)49.6 (>50%)LA ESV INDEX (4CH)22.40 mL/m2 IVSd0.8 (0.7-1.1cm)FS(%)25 % LVDd4.8 (3.8-5.6cm)LA (2D)3.1 (1.6-4.0cm) PWd1.0 (0.7-1.1cm)Ao Root(2D)3.6 (2.0-3.7cm) IVSs1.3 cmLVOT diam2.3 (1.8-2.4cm) LVDs3.6 (2.5-4.0cm)IVC diam1.5 cm PWs1.2 cm M-Mode Dimensions EPSS1.3 cm LA (MM)2.5 (1.6-4.0cm) Ao Root(MM)2.7 (2.0-3.7cm) Aortic Valve AoV VTI0.4 mAo Mean GR7.0 mmHgLVOT VTI0.15 m NATASHA (VMAX)1.5 cm2AVA (VTI) 1.5 cm2 Mitral Valve MV E Vmax54.8 cm/sDECEL Ipzz683 ms MV A Vmax56.8 cm/sP 1/2 T76 ms E/A ratio1.0MVA (PHT)2.9 cm2 TDI E/E' Iogjpd70.6E/E' Lzfmjkm22.7 Medial E' Peak V3.30 cm/sLateral E' Peak V3.50 cm/s Tricuspid Valve RAP (EST) 8 mmHgRVSP8.0 mmHg Left Ventricle Left ventricular cavity size is normal. Global hypokinesia. There is normal left ventricular wall thi ckness. LVEF is 35-40%. Right Ventricle The right ventricle is normal size. The right ventricular systolic function is normal. Atria The left atrium size is normal. The right atrium size is normal. Aortic Valve Aortic valve is trileaflet, thickened and calcified with restricted opening. Left coronary cusp leafl et is heavily calcified with no excursion. Non coronary cusp leaflet is heavily calcifed with very li mited excursion. Trace of aortic regurgitation is present. Visually moderate aortic stenosis. Gradien ts are underestimated due low flow. Mitral Valve Anterior mitral valve leaflet appears mildly prolapsed. The mitral valve is mildly thickened. There i s trace of mitral valve regurgitation noted. There is no mitral valve stenosis. Tricuspid Valve The tricuspid valve leaflets appear normal. There is no tricuspid valve regurgitation noted. Pulmonic Valve Pulmonic valve is not well visualized. There is no pulmonic valvular regurgitation. Great Vessels The aortic root is normal in size. IVC is normal in size and collapses <50% with inspiration. Pericardium No pericardial effusion. Other Information Quality : Fair Conclusion LVEF is 35-40%. Global hypokinesia. Aortic valve is trileaflet, thickened and calcified with restricted opening. Left coronary cusp leafl et is heavily calcified with no excursion. Non coronary cusp leaflet is heavily calcifed with very li mited excursion. Visually moderate aortic stenosis. Gradients are underestimated due low flow. Trace of aortic regurgitation is present. There is trace of mitral valve regurgitation noted.
--- NOTE | 2024-07-19 21:13 | CONS ---
TIME: 10 a.m. HISTORY OF PRESENT ILLNESS: The patient 78-year-old gentleman who presented with what appears to be a Non-STEMI and troponin level of 73,000. He was found to have 3-vessel coronary artery disease. No recent catheterization. Echocardiogram showed low flow, low gradient aortic stenosis. Cardiac surgery was consulted for further management. PHYSICAL EXAMINATION: NEUROLOGIC: The patient is mildly confused, but no deficits. CARDIOVASCULAR: S1, S2, regular rate and rhythm. RESPIRATORY: Clear to auscultation bilaterally. Overall, the patient is very frail and cachectic and deconditioned, had a recent stroke. ASSESSMENT AND PLAN: This is a 78-year-old gentleman who sustained a recent stroke a month and a half ago. He is quite frail and debilitated, appears to be needing a coronary artery bypass grafting, aortic valve replacement. I talked to him and the son. He does not want to be operated on at this time. He feels like he is weak and he does not want surgery. I explained to him the risks however, and the benefits however, I do see a point. He is a very frail man, ____ stamina at this point to tolerate a big open heart surgery. We agreed that he will need a dobutamine stress echo to assess the aortic valve with low gradient aortic stenosis and in the future we can see him as an outpatient for aortic valve replacement and coronary artery bypass grafting. Thank you very much for the consultation. TID: [id number] RECEIPT: [id number]
[2024-07-19] MEDS: HEParin 1,000 UNIT VIAL IVP ONE (21:14)
[2024-07-20] VITALS (11 sets, daily range): BP systolic 105–153; BP diastolic 54–74; PULSE 62–76; RESP 16–45; TEMP 97.3–98.6; O2SAT 100
--- NOTE | 2024-07-20 06:15 | PN ---
[facility] Cardiology Progress Note CARDIOLOGY PROGRESS NOTE JULY 20, 2024 Problems: 1. Non ST-elevation myocardial infarction 2. Multivessel CAD with left main involvement and LV ejection fraction of 40% and mild aortic stenosis with a 10 mm peak gradient and left heart catheterization 3. Left carotid bruit 4. History of lacunar infarcts May 2024 5. Hypertension 6. Diabetes mellitus type 2 7. Dyslipidemia This patient was accepted in transfer from [facility] by the surgical service for aortocoronary bypass graft surgery. He has a history of a lacunar infarct in May of 2024 with good neurologic recovery. Catheterization six weeks ago admission hospital demonstrated multivessel CAD with left main involvement. An appointment was made at that time for him to see the surgical service for aortocoronary bypass graft surgery. There was also some concern at that time about low-flow severe aortic stenosis. In the interim continued to have intermittent chest pain. This worsened for three days just prior to his readmission to [facility]. He was treated at that time with aspirin beta blockers and heparin. Surgical service was contacted and he was accepted in transfer. On arrival here his electrocardiogram showed hyperacute T-waves in V2 and he had significant troponin elevation consistent with a non ST elevation myocardial infarction. Intravenous nitroglycerin was added to his regimen. Repeat catheterization showed ostial RCA stenosis left main disease and severe mid LAD disease and obtuse marginal artery disease. LV ejection fraction is around 40% with some mild hypokinesis of the anterior wall. He had a peak gradient of 10 mm Hg across the aortic valve. He has a left carotid bruit but Doppler actually indicates a 50-70% stenosis on the right side. 2D echo this admission shows ejection fraction of 35-40%. His mean gradient across the aortic valve was7 mm Hg with a valve area of 1.5 centimeters2. He was evaluated yesterday by the CT Surgical Service and because of frail status is not felt to be a surgical candidate at this time. They would advise medical management follow up with them as an outpatient and dobutamine stress echo as an outpatient to further assess his aortic valve. At this point given his non ST elevation myocardial infarction and critical left main and ostial RCA disease we can not offer him much in the way of percutaneous revascularization. Medical management is not likely to protect him. I would advise that we have a discussion with the patient and his son about DNR status and possible palliative care. In the int erim we were try to taper off his intravenous nitroglycerin. We will discontinue heparin protocol and place him on Lovenox for DVT prophylaxis. Prognosis is grim. This morning blood pressure is running 130 systolic heart rate in the 60s he is afebrile. No new labs are available. He continues on amlodipine aspirin atorvastatin heparin insulin scale metoprolol tartrate potassium protocol. As there are no immediate plans for surgery we will load the patient with clopidogrel. As noted prognosis is extremely poor. 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 WOLFGANG LOMELI MD Jul 20, 2024 06:15
[2024-07-20 06:43] LABS: BASOPHILS # (AUTO) 0.03 K/uL (0.00-0.20); BASOPHILS % (AUTO) 0.4 % (0.0-5.0); EOSINOPHILS # (AUTO) 1.02 K/uL (0.00-0.70); EOSINOPHILS % (AUTO) 13.2 % (0.0-8.0); HEMATOCRIT 34.3 % (42-54); IMMATURE GRANULOCYTE ABSOLUTE 0.02 K/uL (0-1); LYMPHOCYTES % (AUTO) 25.9 % (21.0-51.0); MEAN CORPUSCULAR HGB CONC 35.3 g/dL (32.0-36.0); MEAN CORPUSCULAR VOLUME 90.7 fL (79-99); MONOCYTES # (AUTO) 0.8 K/uL (0.1-1.0); MONOCYTES % (AUTO) 9.9 % (3.0-13.0); NEUTROPHILS # (AUTO) 3.9 K/uL (1.8-7.7); NEUTROPHILS % (AUTO) 50.3 % (40.0-77.0); PLATELET COUNT (AUTO) 272 K/uL (130-400); RED BLOOD CELL COUNT(AUTO) 3.78 MIL/uL (4.50-6.20); RED CELL DISTRIBUTION WIDTH 12.9 % (11.0-15.5); WHITE BLOOD COUNT (AUTO) 7.7 K/uL (4.8-10.8)
[2024-07-20] MEDS: cloPIDOgrel 300MG TAB PO ONE (06:47)
[2024-07-20 06:57] LABS: CREATININE 0.6 mg/dL (0.5-1.3); MAGNESIUM 1.4 mg/dL (1.80-2.40); PHOSPHORUS 3.4 mg/dL (2.5-4.9); POTASSIUM 3.5 mmol/L (3.5-5.1)
[2024-07-20] MEDS: ISOSORBIDE MONO 30MG SR TAB PO SCH (08:38)
[2024-07-20] MEDS: ENOXAPARIN SODIUM 30 MG/0.3 ML SQ SCH (08:38)
[2024-07-20] MEDS: MAGNESIUM 2GM PREMIX 50ML 50 ML IV PRN (09:46)
--- NOTE | 2024-07-20 10:42 | PN ---
[facility] PROGRESS NOTE Date Patient Seen: Jul 20, 2024 Time of Visit: 10:39 Supervising Physician: Dr. Ge Primary Care Physician: No PCP- uninsured Outpatient Specialists: NA Inpatient Consults: Dr. Nieves, Dr. Weaver, Dr. Simpson PROBLEM LIST: Acute chest pain secondary to below Non STEMI Status post left heart catheterization on 07/19/2023 with finding of multivessel coronary artery disease and mild aortic stenosis, LVEF 40% Multivessel coronary artery disease Hypokalemia Generalized body weakness Hyperglycemia in the setting of type 2 diabetes mellitus Hypomagnesemia History of CVA, CAD, hyperlipidemia, diabetes mellitus, hypertension, former light smoker INTERVAL HISTORY: 07/20 patient is awake alert and oriented x3 wanting to get up to the recliner tired of being in bed. Otherwise he has no chest pain. He is off nitroglycerin drip and has been downgraded to PCU yesterday. Lab this morning is unremarkable. Continue with aspirin statin. Echocardiogram is done with EF of 35%. Start patient on beta-cooper and diuretic. Patient is not a good candidate for surgery CABG and valve surgery at this time given frailty and weakness. Heparin drip has been discontinued and switched to lovenox ppx per Cardiology. Obtain physical therapy eval and treat. DC planning. REVIEW OF SYSTEMS: 12 point ROS reviewed with patient. Pertinent positives mentioned above. Otherwise negative. PHYSICAL EXAM: GENERAL: alert, weak, awake oriented x 3 HEENT: EOMI, Sclera non icteric, moist mucosa NECK: Supple, no JVD, trachea midline LUNGS: Clear breath sounds bilaterally. No wheezes HEART: Regular rate and rhythm. Normal S1 and S2, without murmurs ABD: Abdomen soft, nontender. Bowel sounds present EXT: No clubbing cyanosis or edema NEURO: Alert and oriented to person, follows commands Vital Signs (last 8hr) Date Time Temp Pulse Resp B/P (MAP) Pulse Ox O2 Delivery O2 Flow Rate FiO2 07/20/24 09:48 71 21 116/64 79 Room Air 07/20/24 09:10 71 28 153/72 78 Room Air 07/20/24 07:48 76 32 136/74 78 Room Air 07/20/24 07:35 98.4 66 45 137/70 Room Air 07/20/24 04:00 98.6 66 19 129/54 98 Room Air LABS: Hematology Labs: Test 07/20/24 06:30 Range/Units White Blood Count 7.7 4.8-10.8 K/uL Red Blood Count 3.78 L 4.50-6.20 MIL/uL Hemoglobin 12.1 L 14.0-18.0 g/dL Hematocrit 34.3 L 42-54 % Mean Corpuscular Volume 90.7 79-99 fL Mean Corpuscular Hemoglobin 32.0 27.0-33.0 pg Mean Corpuscular Hemoglobin Concent 35.3 32.0-36.0 g/dL Red Cell Distribution Width 12.9 11.0-15.5 % Platelet Count 272 130-400 K/uL Mean Platelet Volume 10.2 7.5-10.5 fL Immature Granulocyte % (Auto) 0.3 0-1 % Neutrophils (%) (Auto) 50.3 40.0-77.0 % Lymphocytes (%) (Auto) 25.9 21.0-51.0 % Monocytes (%) (Auto) 9.9 3.0-13.0 % Eosinophils (%) (Auto) 13.2 H 0.0-8.0 % Basophils (%) (Auto) 0.4 0.0-5.0 % Neutrophils # (Auto) 3.9 1.8-7.7 K/uL Lymphocytes # (Auto) 2.0 1.0-4.8 K/uL Monocytes # (Auto) 0.8 0.1-1.0 K/uL Eosinophils # (Auto) 1.02 H 0.00-0.70 K/uL Basophils # (Auto) 0.03 0.00-0.20 K/uL Absolute Immature Granulocyte (auto 0.02 0-1 K/uL Nucleated Red Blood Cells 0.0 0.0-0.19 % Chemistry Labs: Test 07/20/24 06:30 07/20/24 06:25 07/19/24 02:12 07/18/24 17:40 Range/Units Sodium Level 137 136-145 mmol/L Potassium Level 3.5 3.5-5.1 mmol/L Chloride Level 102 101-111 mmol/L Carbon Dioxide Level 27 21-32 mmol/L Blood Urea Nitrogen 27 H 7-18 mg/dL Creatinine 0.6 0.5-1.3 mg/dL Glomerular Filtration Rate Calc 99 >90 mL/min Random Glucose 155 H 70-105 mg/dL Total Calcium 8.6 8.5-10.1 mg/dL Phosphorus Level 3.4 2.5-4.9 mg/dL Magnesium Level 1.40 L 1.80-2.40 mg/dL Whole Blood Glucose 152 #H 70-110 MG/DL Troponin I High Sensitivity 55338 *H 4-75 ng/L Hemoglobin A1c 11.9 H 4.0-6.0 % Estimated Average Glucose (eAG) 295 H 70-126 mg/dL Total Bilirubin 0.5 0.2-1.0 mg/dL Aspartate Amino Transf (AST/SGOT) 74 H 10-37 U/L Alanine Aminotransferase (ALT/SGPT) 27 12-78 U/L Alkaline Phosphatase 107 50-136 U/L C-Reactive Protein, Quantitative 3.20 H 0.5-3.0 mg/L Total Protein 7.1 6.0-8.3 g/dL Albumin 3.4 L 3.5-5.0 g/dL Procalcitonin < 0.05 L 0.05-0.5 ng/mL Thyroid Stimulating Hormone (TSH) 6.64 H 0.36-3.74 uIU/mL Coagulation Labs: Test 07/20/24 06:30 Range/Units Activated Partial Thromboplast Time 67.6 #H 26.3-35.5 SEC DIAGNOSTICS / RADIOLOGY RESULTS: [ ] PLAN NEURO: Minimize central acting medications as possible. Maintain fall precautions, adequate lighting during the day PULMONARY: Supplemental 02 as needed. Maintain aspiration precautions at all times CARDIOVASCULAR: Follow hemodynamics. Vital signs per facility protocol Cardiology CV surgery GI & NUTRITION: Continue with nutritional support. Continue stool softeners and laxatives as needed. KIDNEYS & ELECTROLYTES: Strict monitoring of intake, output and overall fluid balance. Avoid nephrotoxic medications to the extent possible. Medications to be dosed according to renal function. Monitor electrolytes and replace as needed ENDOCRINE: Maintain blood glucose between 100-180 at all times. Hypoglycemia protocol in place INFECTIOUS DISEASE: Trend temperature, WBC and procalcitonin level Follow cultures, deescalate antibiotics as soon as possible. Panculture if new onset fever ONCOLOGY/HEMATOLOGY/COAGULATION: Monitor for s/s of bleeding Monitor hemoglobin, coagulation studies as needed SKIN: Pressure ulcer prevention per facility protocol Specialty mattress ORTHO/REHAB: Continue PT/OT Prophylaxis: Continue GI and DVT prophylaxis Code Status: Full Resuscitation Disposition: PCCU Other: Total patient care time exceeds 35 minutes excluding all procedures. SONIDO VIDAL CNP Jul 20, 2024 10:42
--- NOTE | 2024-07-20 14:51 | PN ---
[facility] PROGRESS NOTE Date of Service: Jul 20, 2024 Time of Service: 14:42 SUBJECTIVE: 07/19 Pt seen at bedside, no acute events overnight. Pt seen with CV surgery at bedside, pt initially saying he does not want surgical intervention. CV surgery planning to discuss with family as well to make sure patient understands what is needed and that he is making an informed decision, will follow up with medical plan. Pt continues on Nitro and heparin drips. He is hemodynamically stable, troponins are elevated and downtrending. Vitals are otherwise unremarkable 07/20 Pt seen at bedside, no acute events overnight. Pt initially deferred surg keke however cardiology discussed with patient that he likely has a poor prognosis with just medical management. Pt decided he would like to have surgery. CV surgery will be contacted to assess once again. He has been afebrile, hemodynamically stable, saturating well on room air. Echo showing decreased EF 35-40% with heavily calcified aortic stenosis. REVIEW OF SYSTEMS 12 point ROS negative unless noted in HPI PHYSICAL EXAM GENERAL APPEARANCE: The patient is awake, alert, and oriented, in no acute cardiopulmonary distress. NEUROLOGICAL: Cranial nerves II-XII grossly intact. Motor is 5/5 in bilateral upper and lower extremities proximal to distal. No sensory deficits. HEENT: Face is symmetric. Pupils are equal and reactive. Extraocular movements are intact. NECK: Supple. No JVD. No thyromegaly. No submental, submandibular, pre- /postauricular, occipital or supraclavicular lymphadenopathy. CHEST: Normal chest expansion. No Telemetry. LUNGS: Absence of any rales, rhonchi or any wheezing. CARDIOVASCULAR: Regular. S1 and S2 normal. No appreciable rubs, murmurs or g allops. ABDOMEN: Soft, nontender, and nondistended. There is no rebound, voluntary gua rding, or rigidity. : Deferred. No [place]. EXTREMITIES: Non-edematous and not cyanotic. No clubbing. Good capillary refill. Pedal pulses are palpable SKIN: No skin breakdown. Vital Signs (last 8hr) Date Time Temp Pulse Resp B/P (MAP) Pulse Ox O2 Delivery O2 Flow Rate FiO2 07/20/24 11:53 98.2 72 16 105/65 98 Room Air 07/20/24 09:48 71 21 116/64 79 Room Air 07/20/24 09:10 71 28 153/72 78 Room Air 07/20/24 07:48 76 32 136/74 78 Room Air 07/20/24 07:35 98.4 66 45 137/70 Room Air 07/20/24 07:00 100 Room Air* 0 21 LABS: Laboratory: Test 07/20/24 11:22 07/20/24 06:30 07/19/24 10:13 07/19/24 02:12 Range/Units Whole Blood Glucose 282 #H 70-110 MG/DL White Blood Count 7.7 4.8-10.8 K/uL Red Blood Count 3.78 L 4.50-6.20 MIL/uL Hemoglobin 12.1 L 14.0-18.0 g/dL Hematocrit 34.3 L 42-54 % Mean Corpuscular Volume 90.7 79-99 fL Mean Corpuscular Hemoglobin 32.0 27.0-33.0 pg Mean Corpuscular Hemoglobin Concent 35.3 32.0-36.0 g/dL Red Cell Distribution Width 12.9 11.0-15.5 % Platelet Count 272 130-400 K/uL Mean Platelet Volume 10.2 7.5-10.5 fL Immature Granulocyte % (Auto) 0.3 0-1 % Neutrophils (%) (Auto) 50.3 40.0-77.0 % Lymphocytes (%) (Auto) 25.9 21.0-51.0 % Monocytes (%) (Auto) 9.9 3.0-13.0 % Eosinophils (%) (Auto) 13.2 H 0.0-8.0 % Basophils (%) (Auto) 0.4 0.0-5.0 % Neutrophils # (Auto) 3.9 1.8-7.7 K/uL Lymphocytes # (Auto) 2.0 1.0-4.8 K/uL Monocytes # (Auto) 0.8 0.1-1.0 K/uL Eosinophils # (Auto) 1.02 H 0.00-0.70 K/uL Basophils # (Auto) 0.03 0.00-0.20 K/uL Absolute Immature Granulocyte (auto 0.02 0-1 K/uL Nucleated Red Blood Cells 0.0 0.0-0.19 % Activated Partial Thromboplast Time 67.6 #H 26.3-35.5 SEC Sodium Level 137 136-145 mmol/L Potassium Level 3.5 3.5-5.1 mmol/L Chloride Level 102 101-111 mmol/L Carbon Dioxide Level 27 21-32 mmol/L Blood Urea Nitrogen 27 H 7-18 mg/dL Creatinine 0.6 0.5-1.3 mg/dL Glomerular Filtration Rate Calc 99 >90 mL/min Random Glucose 155 H 70-105 mg/dL Total Calcium 8.6 8.5-10.1 mg/dL Phosphorus Level 3.4 2.5-4.9 mg/dL Magnesium Level 1.40 L 1.80-2.40 mg/dL Blood Gas Specimen Type Arterial Arterial Blood pH 7.451 H 7.350-7.450 Arterial Blood Partial Pressure CO2 41 35-48 mmHg Arterial Blood Partial Pressure O2 94.1 83.0-108.0 mmHg Arterial Blood HCO3 27.6 21.0-28.0 mmol/L Arterial Blood Oxygen Saturation 96.9 94.0-98.0 % Arterial Blood Base Excess 3.4 H -2.0-3.0 mmol/L Hemoglobin (Blood Gas) 13.0 L 13.5-17.5 g/dL Sodium (Blood Gas) 138 136-145 MMOL/L Bedside Potassium (Blood Gas) 3.9 3.4-4.5 MMOL/L Bedside Chloride (Blood Gas) 102 98-107 MMOL/L Bedside Glucose (Blood Gas) 114 H 65-95 MG/DL Bedside Ionized Calcium (Blood Gas) 1.16 1.15-1.33 MMOL/L Bedside Lactic Acid (Blood Gas) 0.79 H 0.36-0.75 MMOL/L Blood Gas Temperature 37.0 35.5-37.0 CELSIUS Blood Gas Vent Mode RA ROOM AIR FiO2 21.0 % Blood Gas Specimen Comment RR [facility] Troponin I High Sensitivity 69520 *H 4-75 ng/L Test 07/18/24 17:40 Range/Units Hemoglobin A1c 11.9 H 4.0-6.0 % Estimated Average Glucose (eAG) 295 H 70-126 mg/dL Total Bilirubin 0.5 0.2-1.0 mg/dL Aspartate Amino Transf (AST/SGOT) 74 H 10-37 U/L Alanine Aminotransferase (ALT/SGPT) 27 12-78 U/L Alkaline Phosphatase 107 50-136 U/L C-Reactive Protein, Quantitative 3.20 H 0.5-3.0 mg/L Total Protein 7.1 6.0-8.3 g/dL Albumin 3.4 L 3.5-5.0 g/dL Procalcitonin < 0.05 L 0.05-0.5 ng/mL Thyroid Stimulating Hormone (TSH) 6.64 H 0.36-3.74 uIU/mL Current Medications Medications (Trade) Dose Ordered Sig/Ben Route PRN Reason Start Time Stop Time Status Last Admin Dose Admin Acetaminophen (TYLenol 500MG TAB) 500 mg Q6H PRN PO MILD PAIN (1-3) 07/18/24 17:30 08/17/24 17:29 Amlodipine Besylate (NorvASC 5MG TAB) 5 mg DAILY PO 07/19/24 09:00 08/18/24 08:59 Aspirin (Aspirin 81mg Chew Tab) 81 mg DAILY PO 07/19/24 09:00 08/18/24 08:59 07/20/24 08:38 81 MG Atorvastatin Calcium (LIPItor 40MG) 40 mg HS PO 07/18/24 21:00 08/17/24 20:59 07/19/24 20:29 40 MG Clopidogrel Bisulfate (plaVIX 75MG) 75 mg DAILY PO 07/21/24 09:00 08/20/24 08:59 Enoxaparin Sodium (Lovenox) 30 mg DAILY SQ 07/20/24 09:00 08/19/24 08:59 07/20/24 08:38 30 MG Famotidine (Pepcid 20mg Vial) 20 mg BID IV 07/18/24 21:00 08/17/24 20:59 07/20/24 08:39 20 MG Heparin Sodium (Porcine) (HEParin 5,000 UNIT VIAL) *calculation based on ACTUAL B... AD PRN IV HEPARIN PROTOCOL 07/18/24 18:00 07/20/24 06:21 DC 07/19/24 12:06 3,750 UNIT Heparin Sodium/ Dextrose 250 ml @ 0 mls/hr Q6H IV 07/18/24 18:00 07/20/24 06:21 DC 07/19/24 18:24 11 MLS/HR Hydralazine HCl (APRESOLine 20MG INJ) 10 mg Q6H PRN IV ADMINISTER FOR SBP > 180 07/18/24 17:30 08/17/24 17:29 Insulin Glargine (LANtus 100 UNITS/ML 10 ML VIAL) 10 units HS SQ 07/18/24 21:00 08/17/24 20:59 07/18/24 23:09 10 UNITS Insulin Human Regular (humuLIN R 100 UNIT/ML 3ML) INSULIN SLIDING SCAL... ACHS SQ 07/18/24 21:00 08/17/24 20:59 07/20/24 11:54 6 UNIT Isosorbide Mononitrate (Imdur 30mg Sr) 30 mg DAILY PO 07/20/24 09:00 08/19/24 08:59 07/20/24 08:38 30 MG Magnesium Sulfate 50 ml @ 0 mls/hr PROTOCOL PRN IV MAGNESIUM PROTOCOL 07/20/24 10:00 08/19/24 09:59 07/20/24 09:46 25 MLS/HR Metoprolol Tartrate (loprESSOR) 25 mg BID PO 07/18/24 21:00 08/17/24 20:59 07/19/24 20:31 25 MG Nitroglycerin (Nitrostat) 0.4 mg AD PRN SL CHEST PAIN 07/18/24 17:30 08/17/24 17:29 Nitroglycerin/ Dextrose 250 ml @ 0 mls/hr AD IV 07/18/24 22:30 07/20/24 06:21 DC 07/18/24 23:12 0 MLS/HR Potassium Chloride 100 ml @ 100 mls/hr AD PRN IV POTASSIUM PROTOCOL 07/18/24 17:30 08/17/24 17:29 07/19/24 07:34 100 MLS/HR Potassium Chloride (K-Dur/Klor-Con 20meq) 20 meq AD PRN PO POTASSIUM PROTOCOL 07/18/24 17:30 08/17/24 17:29 07/19/24 10:35 20 MEQ Potassium Chloride (KCl 10% Elixir 20meq/15ml) 20 meq AD PRN PO POTASSIUM PROTOCOL 07/18/24 17:30 08/17/24 17:29 Sodium Chloride 500 ml @ 0 mls/hr Q0M IV 07/19/24 07:00 08/18/24 06:59 DIAGNOSTICS / RADIOLOGY: [ ] ASSESSMENT: NSTEMI POA CAD status post left heart catheterization with multivessel disease POA History of chronic heart failure with EF of 35-40% History of right lacunar stroke in June 08, 2024 Hypertension Hyperlipidemia Diabetes mellitus type 2 Left lower extremity pain PLAN: - continue ICU - Continue Heparin drip - Continue nitro drip - Continue telemetry - Continue aspirin 81mg q24h - Continue amlodipine 5mg q24h - Continue sliding scale - Continue hypoglycemia protocol - Echo pending will follow up - Cardiology consulted, appreciate recommendations - CV Surgery consulted, appreciate recommendations Disposition: Pending CV surgery evaluation SELMA VELÁSQUEZ MD Jul 20, 2024 14:51
[2024-07-20] MEDS: acetaMINOPHEN 500 MG TABLET PO PRN (16:03)
[2024-07-20] MEDS: carVEDIlol 12.5 MG TABLET PO SCH (20:54)
[2024-07-21] VITALS (7 sets, daily range): BP systolic 107–141; BP diastolic 56–78; PULSE 68–75; RESP 18–22; TEMP 97.4–98.5; O2SAT 100
--- NOTE | 2024-07-21 08:55 | PN ---
[facility] PROGRESS NOTE Date Patient Seen: Jul 21, 2024 Time of Visit: 08:48 Interval History: [ This patient was accepted in transfer from [facility] by the surgical service for aortocoronary bypass graft surgery. He has a history of a lacunar infarct in May of 2024 with good neurologic recovery. Catheterization six weeks ago admission hospital demonstrated multivessel CAD with left main involvement. An appointment was made at that time for him to see the surgical service for aortocoronary bypass graft surgery. There was also some concern at that time about low-flow severe aortic stenosis. In the interim continued to have intermittent chest pain. This worsened for three days just prior to his readmission to [facility]. He was treated at that time with aspirin beta blockers and heparin. Surgical service was contacted and he was accepted in transfer. On arrival here his electrocardiogram showed hyperacute T-waves in V2 and he had significant troponin elevation consistent with a non ST elevation myocardial infarction. Intravenous nitroglycerin was added to his regimen. Repeat catheterization showed ostial RCA stenosis left main disease and severe mid LAD disease and obtuse marginal artery disease. LV ejection fraction is around 40% with some mild hypokinesis of the anterior wall. He had a peak gradient of 10 mm Hg across the aortic valve. ] Physical Examination: GENERAL: [No acute distress.] HEAD: [Normal with no signs of head trauma.] EYES: [PERRLA, EOMI, conjunctiva and sclera normal.] ENT: [Hearing grossly intact, normal oropharynx.] NECK: [Supple without JVD. There is no tenderness, lymphadenopathy, or masses. No thyromegaly. Normal carotid upstrokes without bruits.] LUNGS: [Clear breath sounds bilaterally. There are right basilar rales one third of the way up the chest. No wheezes, or rhonchi.] HEART: [Normal rate and rhythm. Normal S1 and S2 without mumurs, gallop or rub.] VASC: [Peripheral pulses +2 bilaterally.] ABD: [Bowel sounds normal, soft, nontender, no masses, no organomegaly. No audible bruits.] : [Not examined] LYMPH: [No lymphadenopathy noted.] EXT: [No clubbing, cyanosis or edema.] SKIN: [No rashes or lesions noted.] NEURO: [Awake, alert, and oriented x3. No focal sensory or strength deficits noted.] Laboratory: [ ] Hematology Labs: Test 07/20/24 06:30 Range/Units White Blood Count 7.7 4.8-10.8 K/uL Red Blood Count 3.78 L 4.50-6.20 MIL/uL Hemoglobin 12.1 L 14.0-18.0 g/dL Hematocrit 34.3 L 42-54 % Mean Corpuscular Volume 90.7 79-99 fL Mean Corpuscular Hemoglobin 32.0 27.0-33.0 pg Mean Corpuscular Hemoglobin Concent 35.3 32.0-36.0 g/dL Red Cell Distribution Width 12.9 11.0-15.5 % Platelet Count 272 130-400 K/uL Mean Platelet Volume 10.2 7.5-10.5 fL Immature Granulocyte % (Auto) 0.3 0-1 % Neutrophils (%) (Auto) 50.3 40.0-77.0 % Lymphocytes (%) (Auto) 25.9 21.0-51.0 % Monocytes (%) (Auto) 9.9 3.0-13.0 % Eosinophils (%) (Auto) 13.2 H 0.0-8.0 % Basophils (%) (Auto) 0.4 0.0-5.0 % Neutrophils # (Auto) 3.9 1.8-7.7 K/uL Lymphocytes # (Auto) 2.0 1.0-4.8 K/uL Monocytes # (Auto) 0.8 0.1-1.0 K/uL Eosinophils # (Auto) 1.02 H 0.00-0.70 K/uL Basophils # (Auto) 0.03 0.00-0.20 K/uL Absolute Immature Granulocyte (auto 0.02 0-1 K/uL Nucleated Red Blood Cells 0.0 0.0-0.19 % Chemistry Labs: Test 07/21/24 06:11 07/20/24 06:30 Range/Units Whole Blood Glucose 119 #H 70-110 MG/DL Sodium Level 137 136-145 mmol/L Potassium Level 3.5 3.5-5.1 mmol/L Chloride Level 102 101-111 mmol/L Carbon Dioxide Level 27 21-32 mmol/L Blood Urea Nitrogen 27 H 7-18 mg/dL Creatinine 0.6 0.5-1.3 mg/dL Glomerular Filtration Rate Calc 99 >90 mL/min Random Glucose 155 H 70-105 mg/dL Total Calcium 8.6 8.5-10.1 mg/dL Phosphorus Level 3.4 2.5-4.9 mg/dL Magnesium Level 1.40 L 1.80-2.40 mg/dL Coagulation Labs: Test 07/20/24 06:30 Range/Units Activated Partial Thromboplast Time 67.6 #H 26.3-35.5 SEC Diagnostics / Radiology: [Copy/Paste Echos/Imaging Report here] Impression and Plan: [1. Non ST-elevation myocardial infarction 2. Multivessel CAD with left main involvement and LV ejection fraction of 40% and mild aortic stenosis with a 10 mm peak gradient and left heart catheterization 3. Left carotid bruit with 50-70% stenosis Right carotid artery 4. History of lacunar infarcts May 2024 5. Hypertension 6. Diabetes mellitus type 2 7. Dyslipidemia #Moderate carotid arterial disease He has a left carotid bruit but Doppler actually indicates a 50-70% stenosis on the right side. # Non ST-elevation myocardial infarction due to Multivessel CAD with left main involvement and LV ejection fraction of 40% and mild aortic stenosis with a 10 mm peak gradient and left heart catheterization -2D echo this admission shows ejection fraction of 35-40%. His mean gradient across the aortic valve was7 mm Hg with a valve area of 1.5 centimeters2. -He was evaluated yesterday by the CT Surgical Service and because of frail status is not felt to be a surgical candidate at this time. They would advise medical management follow up with them as an outpatient and dobutamine stress echo as an outpatient to further assess his aortic valve. At this point given his non ST elevation myocardial infarction and critical left main and ostial RCA disease, we can not offer him much in the way of percutaneous revascularization. -Medical management is not likely to protect him. I would advise that we have a discussion with the patient and his son about DNR status and possible palliative care. - Prognosis is grim. -c/w DAPT, statin. As there are no immediate plans for surgery we will load the patient with clopidogrel. -imdur 30 mg qd #HFrEF LVEF 35-40% due to ischemic CM -c/w OMGT as BP will allow lisinopril 2.5 mg qd. 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 Rosalinda Gale MD] ROSALINDA GALE MD Jul 21, 2024 08:55
[2024-07-21] MEDS ORDERED: cloPIDOgrel 75MG TAB PO SCH (09:00)
--- NOTE | 2024-07-21 09:08 | PN ---
[facility] PROGRESS NOTE Date of Service: Jul 21, 2024 Time of Service: 09:05 SUBJECTIVE: 07/19 Pt seen at bedside, no acute events overnight. Pt seen with CV surgery at bedside, pt initially saying he does not want surgical intervention. CV surgery planning to discuss with family as well to make sure patient understands what is needed and that he is making an informed decision, will follow up with medical plan. Pt continues on Nitro and heparin drips. He is hemodynamically stable, troponins are elevated and downtrending. Vitals are otherwise unremarkable 07/20 Pt seen at bedside, no acute events overnight. Pt initially deferred surg keke however cardiology discussed with patient that he likely has a poor prognosis with just medical management. Pt decided he would like to have surgery. CV surgery will be contacted to assess once again. He has been afebrile, hemodynamically stable, saturating well on room air. Echo showing decreased EF 35-40% with heavily calcified aortic stenosis. 07/21 Pt seen at bedside, no acute events overnight. Pt now agreeable to surgery. Reached out to CV surgery who will see the patient later today, appre ciate recommendations. He is hemodynamically stable. He was given a lab holiday today. He displays good functional mobility. Although he ambulates with a cane, he was able to ambulate 150 feet with no difficulty. REVIEW OF SYSTEMS 12 point ROS negative unless noted in HPI PHYSICAL EXAM GENERAL APPEARANCE: The patient is awake, alert, and oriented, in no acute cardiopulmonary distress. NEUROLOGICAL: Cranial nerves II-XII grossly intact. Motor is 5/5 in bilateral upper and lower extremities proximal to distal. No sensory deficits. HEENT: Face is symmetric. Pupils are equal and reactive. Extraocular movements are intact. NECK: Supple. No JVD. No thyromegaly. No submental, submandibular, pre- /postauricular, occipital or supraclavicular lymphadenopathy. CHEST: Normal chest expansion. No Telemetry. LUNGS: Absence of any rales, rhonchi or any wheezing. CARDIOVASCULAR: Regular. S1 and S2 normal. No appreciable rubs, murmurs or gallops. ABDOMEN: Soft, nontender, and nondistended. There is no rebound, voluntary guarding, or rigidity. : Deferred. No [place]. EXTREMITIES: Non-edematous and not cyanotic. No clubbing. Good capillary refill. Pedal pulses are palpable SKIN: No skin breakdown. Vital Signs (last 8hr) Date Time Temp Pulse Resp B/P (MAP) Pulse Ox O2 Delivery O2 Flow Rate FiO2 07/21/24 07:00 97.9 69 20 112/59 100 Room Air 07/21/24 04:00 98.2 75 18 138/78 98 Room Air LABS: Laboratory: Test 07/21/24 06:11 07/20/24 06:30 07/19/24 10:13 Range/Units Whole Blood Glucose 119 #H 70-110 MG/DL White Blood Count 7.7 4.8-10.8 K/uL Red Blood Count 3.78 L 4.50-6.20 MIL/uL Hemoglobin 12.1 L 14.0-18.0 g/dL Hematocrit 34.3 L 42-54 % Mean Corpuscular Volume 90.7 79-99 fL Mean Corpuscular Hemoglobin 32.0 27.0-33.0 pg Mean Corpuscular Hemoglobin Concent 35.3 32.0-36.0 g/dL Red Cell Distribution Width 12.9 11.0-15.5 % Platelet Count 272 130-400 K/uL Mean Platelet Volume 10.2 7.5-10.5 fL Immature Granulocyte % (Auto) 0.3 0-1 % Neutrophils (%) (Auto) 50.3 40.0-77.0 % Lymphocytes (%) (Auto) 25.9 21.0-51.0 % Monocytes (%) (Auto) 9.9 3.0-13.0 % Eosinophils (%) (Auto) 13.2 H 0.0-8.0 % Basophils (%) (Auto) 0.4 0.0-5.0 % Neutrophils # (Auto) 3.9 1.8-7.7 K/uL Lymphocytes # (Auto) 2.0 1.0-4.8 K/uL Monocytes # (Auto) 0.8 0.1-1.0 K/uL Eosinophils # (Auto) 1.02 H 0.00-0.70 K/uL Basophils # (Auto) 0.03 0.00-0.20 K/uL Absolute Immature Granulocyte (auto 0.02 0-1 K/uL Nucleated Red Blood Cells 0.0 0.0-0.19 % Activated Partial Thromboplast Time 67.6 #H 26.3-35.5 SEC Sodium Level 137 136-145 mmol/L Potassium Level 3.5 3.5-5.1 mmol/L Chloride Level 102 101-111 mmol/L Carbon Dioxide Level 27 21-32 mmol/L Blood Urea Nitrogen 27 H 7-18 mg/dL Creatinine 0.6 0.5-1.3 mg/dL Glomerular Filtration Rate Calc 99 >90 mL/min Random Glucose 155 H 70-105 mg/dL Total Calcium 8.6 8.5-10.1 mg/dL Phosphorus Level 3.4 2.5-4.9 mg/dL Magnesium Level 1.40 L 1.80-2.40 mg/dL Blood Gas Specimen Type Arterial Arterial Blood pH 7.451 H 7.350-7.450 Arterial Blood Partial Pressure CO2 41 35-48 mmHg Arterial Blood Partial Pressure O2 94.1 83.0-108.0 mmHg Arterial Blood HCO3 27.6 21.0-28.0 mmol/L Arterial Blood Oxygen Saturation 96.9 94.0-98.0 % Arterial Blood Base Excess 3.4 H -2.0-3.0 mmol/L Hemoglobin (Blood Gas) 13.0 L 13.5-17.5 g/dL Sodium (Blood Gas) 138 136-145 MMOL/L Bedside Potassium (Blood Gas) 3.9 3.4-4.5 MMOL/L Bedside Chloride (Blood Gas) 102 98-107 MMOL/L Bedside Glucose (Blood Gas) 114 H 65-95 MG/DL Bedside Ionized Calcium (Blood Gas) 1.16 1.15-1.33 MMOL/L Bedside Lactic Acid (Blood Gas) 0.79 H 0.36-0.75 MMOL/L Blood Gas Temperature 37.0 35.5-37.0 CELSIUS Blood Gas Vent Mode RA ROOM AIR FiO2 21.0 % Blood Gas Specimen Comment RR SANTA Current Medications Medications (Trade) Dose Ordered Sig/Ben Route PRN Reason Start Time Stop Time Status Last Admin Dose Admin Acetaminophen (TYLenol 500MG TAB) 500 mg Q6H PRN PO MILD PAIN (1-3) 07/18/24 17:30 08/17/24 17:29 07/20/24 16:03 500 MG Amlodipine Besylate (NorvASC 5MG TAB) 5 mg DAILY PO 07/19/24 09:00 07/21/24 08:54 DC Aspirin (Aspirin 81mg Chew Tab) 81 mg DAILY PO 07/19/24 09:00 08/18/24 08:59 07/20/24 08:38 81 MG Atorvastatin Calcium (LIPItor 40MG) 40 mg HS PO 07/18/24 21:00 08/17/24 20:59 07/20/24 20:53 40 MG Carvedilol (Coreg 12.5MG) 12.5 mg BID PO 07/20/24 21:00 07/21/24 08:54 DC 07/20/24 20:54 12.5 MG Clopidogrel Bisulfate (plaVIX 75MG) 75 mg DAILY PO 07/21/24 09:00 07/20/24 14:49 DC Enoxaparin Sodium (Lovenox) 30 mg DAILY SQ 07/20/24 09:00 08/19/24 08:59 07/20/24 08:38 30 MG Famotidine (Pepcid 20mg Vial) 20 mg BID IV 07/18/24 21:00 08/17/24 20:59 07/20/24 20:54 20 MG Heparin Sodium (Porcine) (HEParin 5,000 UNIT VIAL) *calculation based on ACTUAL B... AD PRN IV HEPARIN PROTOCOL 07/18/24 18:00 07/20/24 06:21 DC 07/19/24 12:06 3,750 UNIT Heparin Sodium/ Dextrose 250 ml @ 0 mls/hr Q6H IV 07/18/24 18:00 07/20/24 06:21 DC 07/19/24 18:24 11 MLS/HR Hydralazine HCl (APRESOLine 20MG INJ) 10 mg Q6H PRN IV ADMINISTER FOR SBP > 180 07/18/24 17:30 08/17/24 17:29 Insulin Glargine (LANtus 100 UNITS/ML 10 ML VIAL) 10 units HS SQ 07/18/24 21:00 08/17/24 20:59 07/20/24 20:58 10 UNITS Insulin Human Regular (humuLIN R 100 UNIT/ML 3ML) INSULIN SLIDING SCAL... ACHS SQ 07/18/24 21:00 08/17/24 20:59 07/20/24 20:59 7 UNIT Isosorbide Mononitrate (Imdur 30mg Sr) 30 mg DAILY PO 11/1/24 09:00 08/19/24 08:59 07/20/24 08:38 30 MG Lisinopril (Prinivil 2.5mg) 2.5 mg DAILY PO 07/21/24 09:00 08/20/24 08:59 Magnesium Sulfate 50 ml @ 0 mls/hr PROTOCOL PRN IV MAGNESIUM PROTOCOL 07/20/24 10:00 08/19/24 09:59 07/20/24 09:46 25 MLS/HR Metoprolol Tartrate (loprESSOR) 25 mg BID PO 07/18/24 21:00 07/20/24 15:53 DC 07/19/24 20:31 25 MG Nitroglycerin (Nitrostat) 0.4 mg AD PRN SL CHEST PAIN 07/18/24 17:30 08/17/24 17:29 Nitroglycerin/ Dextrose 250 ml @ 0 mls/hr AD IV 07/18/24 22:30 07/20/24 06:21 DC 07/18/24 23:12 0 MLS/HR Potassium Chloride 100 ml @ 100 mls/hr AD PRN IV POTASSIUM PROTOCOL 07/18/24 17:30 08/17/24 17:29 07/19/24 07:34 100 MLS/HR Potassium Chloride (K-Dur/Klor-Con 20meq) 20 meq AD PRN PO POTASSIUM PROTOCOL 07/18/24 17:30 08/17/24 17:29 07/19/24 10:35 20 MEQ Potassium Chloride (KCl 10% Elixir 20meq/15ml) 20 meq AD PRN PO POTASSIUM PROTOCOL 07/18/24 17:30 08/17/24 17:29 Sodium Chloride 500 ml @ 0 mls/hr Q0M IV 07/19/24 07:00 08/18/24 06:59 DIAGNOSTICS / RADIOLOGY: [ ] ASSESSMENT: NSTEMI POA CAD status post left heart catheterization with multivessel disease POA History of chronic heart failure with EF of 35-40% History of right lacunar stroke in June 08, 2024 Hypertension Hyperlipidemia Diabetes mellitus type 2 Left lower extremity pain PLAN: - continue ICU - Continue Heparin drip - Continue nitro drip - Continue telemetry - Continue aspirin 81mg q24h - Continue amlodipine 5mg q24h - Continue sliding scale - Continue hypoglycemia protocol - Echo pending will follow up - Cardiology consulted, appreciate recommendations - CV Surgery consulted, appreciate recommendations Disposition: Pending CV surgery evaluation SELMA VELÁSQUEZ MD Jul 21, 2024 09:08
[2024-07-21] MEDS: LISINOPRIL 2.5 MG TABLET PO SCH (09:20)
[2024-07-21 09:34] LABS: BASOPHILS # (AUTO) 0.05 K/uL (0.00-0.20); BASOPHILS % (AUTO) 0.8 % (0.0-5.0); EOSINOPHILS # (AUTO) 0.84 K/uL (0.00-0.70); EOSINOPHILS % (AUTO) 12.7 % (0.0-8.0); HEMATOCRIT 30.8 % (42-54); IMMATURE GRANULOCYTE ABSOLUTE 0.03 K/uL (0-1); LYMPHOCYTES # (AUTO) 1.3 K/uL (1.0-4.8); LYMPHOCYTES % (AUTO) 19.9 % (21.0-51.0); MEAN CORPUSCULAR HEMOGLOBIN 31.8 pg (27.0-33.0); MEAN CORPUSCULAR HGB CONC 34.7 g/dL (32.0-36.0); MEAN CORPUSCULAR VOLUME 91.7 fL (79-99); MONOCYTES # (AUTO) 0.7 K/uL (0.1-1.0); MONOCYTES % (AUTO) 10.5 % (3.0-13.0); NEUTROPHILS # (AUTO) 3.7 K/uL (1.8-7.7); NEUTROPHILS % (AUTO) 55.6 % (40.0-77.0); PLATELET COUNT (AUTO) 265 K/uL (130-400); RED BLOOD CELL COUNT(AUTO) 3.36 MIL/uL (4.50-6.20); RED CELL DISTRIBUTION WIDTH 12.9 % (11.0-15.5); WHITE BLOOD COUNT (AUTO) 6.6 K/uL (4.8-10.8)
[2024-07-21 09:41] LABS: CREATININE 0.7 mg/dL (0.5-1.3); MAGNESIUM 1.6 mg/dL (1.80-2.40); POTASSIUM 3.8 mmol/L (3.5-5.1)
--- NOTE | 2024-07-21 18:04 | PN ---
[facility] PROGRESS NOTE Date Patient Seen: Jul 21, 2024 Time of Visit: 18:00 Supervising Physician: MARIANNA RODRIGUEZ MD Primary Care Physician: No PCP- uninsured Outpatient Specialists: NA Inpatient Consults: Dr. Nieves, Dr. Weaver, Dr. Simpson PROBLEM LIST: Acute chest pain secondary to below Non STEMI Status post left heart catheterization on 07/19/2023 with finding of multivessel coronary artery disease and mild aortic stenosis, LVEF 40% Multivessel coronary artery disease Hypokalemia Generalized body weakness Hyperglycemia in the setting of type 2 diabetes mellitus Hypomagnesemia History of CVA, CAD, hyperlipidemia, diabetes mellitus, hypertension, former light smoker INTERVAL HISTORY: Patient seen and evaluated He is on room air now Very weak, severely deconditioned complains of recurrent chest pain chest pain is exacerbated by activity pain radiates to the left shoulder denies palpiations complains of fatigue and weakness REVIEW OF SYSTEMS: 12 point ROS reviewed with patient. Pertinent positives mentioned above. Otherwise negative. PHYSICAL EXAM: GENERAL: alert, weak, awake oriented x 3 HEENT: EOMI, Sclera non icteric, moist mucosa NECK: Supple, no JVD, trachea midline LUNGS: Clear breath sounds bilaterally. No wheezes HEART: Regular rate and rhythm. Normal S1 and S2, without murmurs ABD: Abdomen soft, nontender. Bowel sounds present EXT: No clubbing cyanosis or edema NEURO: Alert and oriented to person, follows commands Vital Signs (last 8hr) Date Time Temp Pulse Resp B/P (MAP) Pulse Ox O2 Delivery O2 Flow Rate FiO2 07/21/24 16:00 98.4 70 20 141/63 100 Room Air 07/21/24 11:00 97.3 68 22 107/56 100 Room Air LABS: Hematology Labs: Test 07/21/24 09:17 Range/Units White Blood Count 6.6 4.8-10.8 K/uL Red Blood Count 3.36 L 4.50-6.20 MIL/uL Hemoglobin 10.7 L 14.0-18.0 g/dL Hematocrit 30.8 L 42-54 % Mean Corpuscular Volume 91.7 79-99 fL Mean Corpuscular Hemoglobin 31.8 27.0-33.0 pg Mean Corpuscular Hemoglobin Concent 34.7 32.0-36.0 g/dL Red Cell Distribution Width 12.9 11.0-15.5 % Platelet Count 265 130-400 K/uL Mean Platelet Volume 10.1 7.5-10.5 fL Immature Granulocyte % (Auto) 0.5 0-1 % Neutrophils (%) (Auto) 55.6 40.0-77.0 % Lymphocytes (%) (Auto) 19.9 L 21.0-51.0 % Monocytes (%) (Auto) 10.5 3.0-13.0 % Eosinophils (%) (Auto) 12.7 H 0.0-8.0 % Basophils (%) (Auto) 0.8 0.0-5.0 % Neutrophils # (Auto) 3.7 1.8-7.7 K/uL Lymphocytes # (Auto) 1.3 1.0-4.8 K/uL Monocytes # (Auto) 0.7 0.1-1.0 K/uL Eosinophils # (Auto) 0.84 H 0.00-0.70 K/uL Basophils # (Auto) 0.05 0.00-0.20 K/uL Absolute Immature Granulocyte (auto 0.03 0-1 K/uL Nucleated Red Blood Cells 0.0 0.0-0.19 % Chemistry Labs: Test 07/21/24 15:59 07/21/24 09:00 07/20/24 06:30 Range/Units Whole Blood Glucose 169 H 70-110 MG/DL Bedside Glucose Comment Notified Nurse Sodium Level 136 136-145 mmol/L Potassium Level 3.8 3.5-5.1 mmol/L Chloride Level 99 L 101-111 mmol/L Carbon Dioxide Level 32 21-32 mmol/L Blood Urea Nitrogen 21 H 7-18 mg/dL Creatinine 0.7 0.5-1.3 mg/dL Glomerular Filtration Rate Calc 95 >90 mL/min Random Glucose 204 H 70-105 mg/dL Total Calcium 8.3 L 8.5-10.1 mg/dL Magnesium Level 1.60 L 1.80-2.40 mg/dL Phosphorus Level 3.4 2.5-4.9 mg/dL Coagulation Labs: Test 07/20/24 06:30 Range/Units Activated Partial Thromboplast Time 67.6 #H 26.3-35.5 SEC DIAGNOSTICS / RADIOLOGY RESULTS: [ Reviewed ] PLAN As per cardiothoracic surgery, patient is not a candidate for CABG due to multiple medical comorbidities and poor overall health he is critically ill with muscle wasting patient will have another 2D echocardiogram and re-evaluation by cardiology and cardiothoracic surgery will continue inpatient medical management Overall, prognosis is very poor and will place a consult for palliative care evaluation for goals of care NEURO: Minimize central acting medications as possible. Fall Precautions. Well lighted room through the day and minimize interruptions through the night to prevent acute delirium. PULMONARY: Supplemental 02 as needed Titrate Fio2 to keep Spo2 > or = 90% DuoNebs and CPT as needed IS hourly while awake for pulmonary hygiene Out of bed to chair as tolerated VAP Bundle CARDIOVASCULAR: Follow hemodynamics. Titrate vasopressor to keep MAP >65 or systolic blood pressure >95mmHg DRIPS: Nitroglycerin Heparin LINES: PIV GI & NUTRITION: Continue nutritional support Aspirations precautions Prokinetic agents and laxatives as needed KIDNEYS & ELECTROLYTES: Strict monitoring of intake and output Daily weights Avoid nephrotoxic agents Monitor electrolytes and replace as needed Goal urine output of 30mL/hr or 0.5mL/kg/hr ENDOCRINE: Maintain blood glucose between 100-180 at all times. Insulin sliding scale for blood glucose management INFECTIOUS DISEASE: Trend temperature. Dozier-culture if febrile. Micro: NA Antibiotics: NA HEMATOLOGY & COAGULATION: Monitor H&H. Keep Hgb > 7 Transfuse 1 unit of PRBC for Hgb < 7 Transfuse 1 pack of platelets of platelets < 20, 000 Watch for any signs and symptoms of bleeding SKIN: Pressure ulcer prevention per facility protocol Rehab: PT/OT Prophylaxis: GI: Pepcid DVT: Heparin Code Status: Full Resuscitation Disposition: Downgrade to PCCU if off NTG drip and stable Other: Total patient care time exceeds 35 minutes excluding all procedures. ATTESTATION BY PHYSICIAN The above clinical note was scribed by Sung Mora BSc on my behalf and I attest to the accuracy of the clinical information and treatment plan included in this note. Marianna Rodriguez MD I personally scribed for MARIANNA RODRIGUEZ MD ([email or web address]) on 07/21/24 at 18:04. Electronically submitted by Sung Mora ([email or web address]). MARIANNA RODRIGUEZ MD Jul 21, 2024 18:04
--- NOTE | 2024-07-21 23:56 | PN ---
TIME: 1:00 p.m. SUBJECTIVE: The patient is a pleasant 78-year-old gentleman who has coronary artery disease and severe aortic stenosis, low flow, low gradient however. We have been following him for potential surgery. Initially he declined surgery this morning. I talked to him again. He appears to be confused about the whole situation. Again, he is pointed out he is not really wanting to have surgery, but his family wants him to undergo the surgery. Anyways, we will have a long conversation with him in the upcoming days. PHYSICAL EXAMINATION: NEUROLOGIC: Mildly confused, but in no deficits. CARDIAC: S1, S2, regular rate and rhythm. RESPIRATORY: Clear to auscultation bilaterally. ASSESSMENT AND PLAN: This is a 78-year-old gentleman who sustained a stroke a few weeks ago, also has severe aortic stenosis, coronary artery disease. He is frail and debilitated. Overall, we recommend performing a dobutamine stress echo to assess if the gradient is increased with a dobutamine echo and assess if the patient has any cardiac reserve to undergo open heart surgery. Overall, he does not appear to be a good candidate and he apparently as of this morning again is not wanting surgery. So, we will follow up daily. TID: [id number] RECEIPT: [id number]
[2024-07-22] VITALS (8 sets, daily range): BP systolic 114–139; BP diastolic 56–72; PULSE 63–76; RESP 18–20; TEMP 97.4–98.6; O2SAT 100
--- NOTE | 2024-07-22 09:22 | PN ---
[facility] PROGRESS NOTE Date Patient Seen: Jul 22, 2024 Time of Visit: 09:18 Interval History: [ This patient was accepted in transfer from [facility] by the surgical service for aortocoronary bypass graft surgery. He has a history of a lacunar infarct in May of 2024 with good neurologic recovery. Catheterization six weeks ago admission hospital demonstrated multivessel CAD with left main involvement. An appointment was made at that time for him to see the surgical service for aortocoronary bypass graft surgery. There was also some concern at that time about low-flow severe aortic stenosis. In the interim continued to have intermittent chest pain. This worsened for three days just prior to his readmission to [facility]. He was treated at that time with aspirin beta blockers and heparin. Surgical service was contacted and he was accepted in transfer. On arrival here his electrocardiogram showed hyperacute T-waves in V2 and he had significant troponin elevation consistent with a non ST elevation myocardial infarction. Intravenous nitroglycerin was added to his regimen. Repeat catheterization showed ostial RCA stenosis, left main disease and severe mid LAD disease and obtuse marginal artery disease. LV ejection fraction is around 40% with some mild hypokinesis of the anterior wall. He had a peak gradient of 10 mm Hg across the aortic valve during LHC. Patient has a mild systolic murmur on exam. CV surgery is requesting dobutamine stress echo. We will make patient NPO after midnight for possible exam per Dr Simpson. ] Physical Examination: GENERAL: [No acute distress.] HEAD: [Normal with no signs of head trauma.] EYES: [PERRLA, EOMI, conjunctiva and sclera normal.] ENT: [Hearing grossly intact, normal oropharynx.] NECK: [Supple without JVD. There is no tenderness, lymphadenopathy, or masses. No thyromegaly. Left carotid bruit.] LUNGS: [Clear breath sounds bilaterally. There are right basilar rales one third of the way up the chest. No wheezes, or rhonchi.] HEART: [Normal rate and rhythm. 4/6 systolic ejection murmur.] VASC: [Peripheral pulses +2 bilaterally.] ABD: [Bowel sounds normal, soft, nontender, no masses, no organomegaly. No audible bruits.] : [Not examined] LYMPH: [No lymphadenopathy noted.] EXT: [No clubbing, cyanosis or edema.] SKIN: [No rashes or lesions noted.] NEURO: [Awake, alert, and oriented x3. No focal sensory or strength deficits noted.] Laboratory: [ ] Hematology Labs: Test 07/21/24 09:17 Range/Units White Blood Count 6.6 4.8-10.8 K/uL Red Blood Count 3.36 L 4.50-6.20 MIL/uL Hemoglobin 10.7 L 14.0-18.0 g/dL Hematocrit 30.8 L 42-54 % Mean Corpuscular Volume 91.7 79-99 fL Mean Corpuscular Hemoglobin 31.8 27.0-33.0 pg Mean Corpuscular Hemoglobin Concent 34.7 32.0-36.0 g/dL Red Cell Distribution Width 12.9 11.0-15.5 % Platelet Count 265 130-400 K/uL Mean Platelet Volume 10.1 7.5-10.5 fL Immature Granulocyte % (Auto) 0.5 0-1 % Neutrophils (%) (Auto) 55.6 40.0-77.0 % Lymphocytes (%) (Auto) 19.9 L 21.0-51.0 % Monocytes (%) (Auto) 10.5 3.0-13.0 % Eosinophils (%) (Auto) 12.7 H 0.0-8.0 % Basophils (%) (Auto) 0.8 0.0-5.0 % Neutrophils # (Auto) 3.7 1.8-7.7 K/uL Lymphocytes # (Auto) 1.3 1.0-4.8 K/uL Monocytes # (Auto) 0.7 0.1-1.0 K/uL Eosinophils # (Auto) 0.84 H 0.00-0.70 K/uL Basophils # (Auto) 0.05 0.00-0.20 K/uL Absolute Immature Granulocyte (auto 0.03 0-1 K/uL Nucleated Red Blood Cells 0.0 0.0-0.19 % Chemistry Labs: Test 07/22/24 05:59 07/21/24 15:59 07/21/24 09:00 Range/Units Whole Blood Glucose 184 H 70-110 MG/DL Bedside Glucose Comment Notified Nurse Sodium Level 136 136-145 mmol/L Potassium Level 3.8 3.5-5.1 mmol/L Chloride Level 99 L 101-111 mmol/L Carbon Dioxide Level 32 21-32 mmol/L Blood Urea Nitrogen 21 H 7-18 mg/dL Creatinine 0.7 0.5-1.3 mg/dL Glomerular Filtration Rate Calc 95 >90 mL/min Random Glucose 204 H 70-105 mg/dL Total Calcium 8.3 L 8.5-10.1 mg/dL Magnesium Level 1.60 L 1.80-2.40 mg/dL Diagnostics / Radiology: [Copy/Paste Echos/Imaging Report here] Impression and Plan: [1. Non ST-elevation myocardial infarction 2. Multivessel CAD with left main involvement and LV ejection fraction of 40% and mild aortic stenosis with a 10 mm peak gradient and left heart catheterization 3. Left carotid bruit with 50-70% stenosis Right carotid artery 4. History of lacunar infarcts May 2024 5. Hypertension 6. Diabetes mellitus type 2 7. Dyslipidemia #Moderate carotid arterial disease He has a left carotid bruit but Doppler actually indicates a 50-70% stenosis on the right side. # Non ST-elevation myocardial infarction due to Multivessel CAD with left main involvement and LV ejection fraction of 40% and mild aortic stenosis with a 10 mm peak gradient and left heart catheterization -2D echo this admission shows ejection fraction of 35-40%. His mean gradient across the aortic valve was7 mm Hg with a valve area of 1.5 centimeters2. -He was evaluated yesterday by the [facility] Surgical Service and because of frail status is not felt to be a surgical candidate at this time. They would advise medical management follow up with them as an outpatient and dobutamine stress echo as an outpatient to further assess his aortic valve. At this point given his non ST elevation myocardial infarction and critical left main and ostial RCA disease, we can not offer him much in the way of percutaneous revascularization. -Medical management is not likely to protect him, if he decides to proceed with medical management, recommend hospice consult. - Prognosis is grim. -c/w DAPT, statin. As there are no immediate plans for surgery we will loaded the patient with clopidogrel. However, patient decided to discuss with CV surgery again, however,CV surgery is wanting dobutamine stress echo prior to undergoing open heart surgery for risk stratification. Patient declined surgery again yesterday however. Patient is npo after midnight and Dr Simpson will proceed with possible dobutamine stress echo in the morning vs medical management. -imdur 30 mg qd #HFrEF LVEF 35-40% due to ischemic CM -c/w OMGT as BP will allow lisinopril 2.5 mg qd. 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 Rosalinda Gale MD] ROSALINDA GALE MD Jul 22, 2024 09:22
--- NOTE | 2024-07-22 11:34 | PN ---
[facility] PROGRESS NOTE Date of Service: Jul 22, 2024 Time of Service: 11:32 SUBJECTIVE: 07/19 Pt seen at bedside, no acute events overnight. Pt seen with CV surgery at bedside, pt initially saying he does not want surgical intervention. CV surgery planning to discuss with family as well to make sure patient understands what is needed and that he is making an informed decision, will follow up with medical plan. Pt continues on Nitro and heparin drips. He is hemodynamically stable, troponins are elevated and downtrending. Vitals are otherwise unremarkable 07/20 Pt seen at bedside, no acute events overnight. Pt initially deferred surg keke however cardiology discussed with patient that he likely has a poor prognosis with just medical management. Pt decided he would like to have surgery. CV surgery will be contacted to assess once again. He has been afebrile, hemodynamically stable, saturating well on room air. Echo showing decreased EF 35-40% with heavily calcified aortic stenosis. 07/21 Pt seen at bedside, no acute events overnight. Pt now agreeable to surgery. Reached out to CV surgery who will see the patient later today, appre ciate recommendations. He is hemodynamically stable. He was given a lab holiday today. He displays good functional mobility. Although he ambulates with a cane, he was able to ambulate 150 feet with no difficulty. 07/22 Pt seen at bedside, no acute events overnight. Pending dobutamine stress test, will follow up with results. Lab holiday today, will repeat tomorrow. REVIEW OF SYSTEMS 12 point ROS negative unless noted in HPI PHYSICAL EXAM GENERAL APPEARANCE: The patient is awake, alert, and oriented, in no acute cardiopulmonary distress. NEUROLOGICAL: Cranial nerves II-XII grossly intact. Motor is 5/5 in bilateral upper and lower extremities proximal to distal. No sensory deficits. HEENT: Face is symmetric. Pupils are equal and reactive. Extraocular movements are intact. NECK: Supple. No JVD. No thyromegaly. No submental, submandibular, pre- /postauricular, occipital or supraclavicular lymphadenopathy. CHEST: Normal chest expansion. No Telemetry. LUNGS: Absence of any rales, rhonchi or any wheezing. CARDIOVASCULAR: Regular. S1 and S2 normal. No appreciable rubs, murmurs or gallops. ABDOMEN: Soft, nontender, and nondistended. There is no rebound, voluntary guarding, or rigidity. : Deferred. No [place]. EXTREMITIES: Non-edematous and not cyanotic. No clubbing. Good capillary refill. Pedal pulses are palpable SKIN: No skin breakdown. Vital Signs (last 8hr) Date Time Temp Pulse Resp B/P (MAP) Pulse Ox O2 Delivery O2 Flow Rate FiO2 07/22/24 07:43 97.9 63 20 139/67 100 Room Air 07/22/24 07:00 100 Room Air* 0 21 07/22/24 04:18 98.1 69 18 123/56 94 Room Air LABS: Laboratory: Test 07/22/24 11:10 07/21/24 15:59 07/21/24 09:17 07/21/24 09:00 Range/Units Whole Blood Glucose 319 #H 70-110 MG/DL Bedside Glucose Comment Notified Nurse White Blood Count 6.6 4.8-10.8 K/uL Red Blood Count 3.36 L 4.50-6.20 MIL/uL Hemoglobin 10.7 L 14.0-18.0 g/dL Hematocrit 30.8 L 42-54 % Mean Corpuscular Volume 91.7 79-99 fL Mean Corpuscular Hemoglobin 31.8 27.0-33.0 pg Mean Corpuscular Hemoglobin Concent 34.7 32.0-36.0 g/dL Red Cell Distribution Width 12.9 11.0-15.5 % Platelet Count 265 130-400 K/uL Mean Platelet Volume 10.1 7.5-10.5 fL Immature Granulocyte % (Auto) 0.5 0-1 % Neutrophils (%) (Auto) 55.6 40.0-77.0 % Lymphocytes (%) (Auto) 19.9 L 21.0-51.0 % Monocytes (%) (Auto) 10.5 3.0-13.0 % Eosinophils (%) (Auto) 12.7 H 0.0-8.0 % Basophils (%) (Auto) 0.8 0.0-5.0 % Neutrophils # (Auto) 3.7 1.8-7.7 K/uL Lymphocytes # (Auto) 1.3 1.0-4.8 K/uL Monocytes # (Auto) 0.7 0.1-1.0 K/uL Eosinophils # (Auto) 0.84 H 0.00-0.70 K/uL Basophils # (Auto) 0.05 0.00-0.20 K/uL Absolute Immature Granulocyte (auto 0.03 0-1 K/uL Nucleated Red Blood Cells 0.0 0.0-0.19 % Sodium Level 136 136-145 mmol/L Potassium Level 3.8 3.5-5.1 mmol/L Chloride Level 99 L 101-111 mmol/L Carbon Dioxide Level 32 21-32 mmol/L Blood Urea Nitrogen 21 H 7-18 mg/dL Creatinine 0.7 0.5-1.3 mg/dL Glomerular Filtration Rate Calc 95 >90 mL/min Random Glucose 204 H 70-105 mg/dL Total Calcium 8.3 L 8.5-10.1 mg/dL Magnesium Level 1.60 L 1.80-2.40 mg/dL Current Medications Medications (Trade) Dose Ordered Sig/Ben Route PRN Reason Start Time Stop Time Status Last Admin Dose Admin Acetaminophen (TYLenol 500MG TAB) 500 mg Q6H PRN PO MILD PAIN (1-3) 07/18/24 17:30 08/17/24 17:29 07/22/24 00:08 500 MG Amlodipine Besylate (NorvASC 5MG TAB) 5 mg DAILY PO 07/19/24 09:00 07/21/24 08:54 DC Aspirin (Aspirin 81mg Chew Tab) 81 mg DAILY PO 07/19/24 09:00 08/18/24 08:59 07/22/24 08:48 81 MG Atorvastatin Calcium (LIPItor 40MG) 40 mg HS PO 07/18/24 21:00 08/17/24 20:59 07/21/24 20:40 40 MG Carvedilol (Coreg 12.5MG) 12.5 mg BID PO 07/20/24 21:00 07/21/24 08:54 DC 07/20/24 20:54 12.5 MG Clopidogrel Bisulfate (plaVIX 75MG) 75 mg DAILY PO 07/21/24 09:00 07/20/24 14:49 DC Enoxaparin Sodium (Lovenox) 30 mg DAILY SQ 07/20/24 09:00 08/19/24 08:59 07/22/24 08:47 30 MG Famotidine (Pepcid 20mg Vial) 20 mg BID IV 07/18/24 21:00 08/17/24 20:59 07/22/24 08:48 20 MG Heparin Sodium (Porcine) (HEParin 5,000 UNIT VIAL) *calculation based on ACTUAL B... AD PRN IV HEPARIN PROTOCOL 07/18/24 18:00 07/20/24 06:21 DC 07/19/24 12:06 3,750 UNIT Heparin Sodium/ Dextrose 250 ml @ 0 mls/hr Q6H IV 07/18/24 18:00 07/20/24 06:21 DC 07/19/24 18:24 11 MLS/HR Hydralazine HCl (APRESOLine 20MG INJ) 10 mg Q6H PRN IV ADMINISTER FOR SBP > 180 07/18/24 17:30 08/17/24 17:29 Insulin Glargine (LANtus 100 UNITS/ML 10 ML VIAL) 10 units HS SQ 07/18/24 21:00 08/17/24 20:59 07/21/24 20:43 10 UNITS Insulin Human Regular (humuLIN R 100 UNIT/ML 3ML) INSULIN SLIDING SCAL... ACHS SQ 07/18/24 21:00 08/17/24 20:59 07/22/24 11:29 7 UNIT Isosorbide Mononitrate (Imdur 30mg Sr) 30 mg DAILY PO 07/20/24 09:00 08/19/24 08:59 07/22/24 08:48 30 MG Lisinopril (Prinivil 2.5mg) 2.5 mg DAILY PO 07/21/24 09:00 08/20/24 08:59 07/22/24 08:51 2.5 MG Magnesium Sulfate 50 ml @ 0 mls/hr PROTOCOL PRN IV MAGNESIUM PROTOCOL 07/20/24 10:00 08/19/24 09:59 07/20/24 09:46 25 MLS/HR Metoprolol Tartrate (loprESSOR) 25 mg BID PO 07/18/24 21:00 07/20/24 15:53 DC 07/19/24 20:31 25 MG Nitroglycerin (Nitrostat) 0.4 mg AD PRN SL CHEST PAIN 07/18/24 17:30 08/17/24 17:29 Nitroglycerin/ Dextrose 250 ml @ 0 mls/hr AD IV 07/18/24 22:30 07/20/24 06:21 DC 07/18/24 23:12 0 MLS/HR Potassium Chloride 100 ml @ 100 mls/hr AD PRN IV POTASSIUM PROTOCOL 07/18/24 17:30 08/17/24 17:29 07/19/24 07:34 100 MLS/HR Potassium Chloride (K-Dur/Klor-Con 20meq) 20 meq AD PRN PO POTASSIUM PROTOCOL 07/18/24 17:30 08/17/24 17:29 07/19/24 10:35 20 MEQ Potassium Chloride (KCl 10% Elixir 20meq/15ml) 20 meq AD PRN PO POTASSIUM PROTOCOL 07/18/24 17:30 08/17/24 17:29 Sodium Chloride 500 ml @ 0 mls/hr Q0M IV 07/19/24 07:00 08/18/24 06:59 DIAGNOSTICS / RADIOLOGY: [ ] ASSESSMENT: NSTEMI POA CAD status post left heart catheterization with multivessel disease POA History of chronic heart failure with EF of 35-40% History of right lacunar stroke in June 08, 2024 Hypertension Hyperlipidemia Diabetes mellitus type 2 Left lower extremity pain PLAN: - continue ICU - Continue Heparin drip - Continue nitro drip - Continue telemetry - Continue aspirin 81mg q24h - Continue amlodipine 5mg q24h - Continue sliding scale - Continue hypoglycemia protocol - Dobutamine stress echo pending, will follow up - Cardiology consulted, appreciate recommendations - CV Surgery consulted, appreciate recommendations Disposition: Pending dobutamine stress echo and CV surgery evaluation, possible CABG SELMA VELÁSQUEZ MD Jul 22, 2024 11:34
--- NOTE | 2024-07-22 12:32 | PN ---
[facility] PROGRESS NOTE Date Patient Seen: Jul 22, 2024 Time of Visit: 12:30 Supervising Physician: Dr. Ge Primary Care Physician: No PCP- uninsured Outpatient Specialists: NA Inpatient Consults: Dr. Nieves, Dr. Weaver, Dr. Simpson PROBLEM LIST: Acute chest pain secondary to below Non STEMI Status post left heart catheterization on 07/19/2023 with finding of multivessel coronary artery disease and mild aortic stenosis, LVEF 40% Multivessel coronary artery disease Hypokalemia Generalized body weakness Hyperglycemia in the setting of type 2 diabetes mellitus Hypomagnesemia History of CVA, CAD, hyperlipidemia, diabetes mellitus, hypertension, former light smoker INTERVAL HISTORY: 07/22 patient is having his lunch not in acute distress. He is not complaining of any chest pain but complaining of left leg pain. Patient is able to ambulate without having chest pain or shortness for breath. He wants to go home. His vital signs blood pressure 117/70 heart rate is 65 respiratory rate is 20. T- max is 98.1. He is on room air sat 100%. Lung sound clear. He is on room air. Lab this morning blood glucose is been elevated. Hemoglobin A1c is 11.9. Patient is not on any anti hyperglycemia at home. We will start patient on long acting and metformin. Continue asa, statin, acei. BB was on hold given h ypotension. If no cardiac revascularization is offered, we recommend for palliative consultation. At the moment, no pulmonary/ critical care need, we will be available if needed. Thank you for allowing us to participate in the care of this patient. REVIEW OF SYSTEMS: 12 point ROS reviewed with patient. Pertinent positives mentioned above. Otherwise negative. PHYSICAL EXAM: GENERAL: alert, weak, awake oriented x 3 HEENT: EOMI, Sclera non icteric, moist mucosa NECK: Supple, no JVD, trachea midline LUNGS: Clear breath sounds bilaterally. No wheezes HEART: Regular rate and rhythm. Normal S1 and S2, without murmurs ABD: Abdomen soft, nontender. Bowel sounds present EXT: No clubbing cyanosis or edema NEURO: Alert and oriented to person, follows commands Vital Signs (last 8hr) Date Time Temp Pulse Resp B/P (MAP) Pulse Ox O2 Delivery O2 Flow Rate FiO2 07/22/24 11:42 97.9 65 20 117/70 100 Room Air 07/22/24 07:43 97.9 63 20 139/67 100 Room Air 07/22/24 07:00 100 Room Air* 0 21 LABS: Hematology Labs: Test 07/21/24 09:17 Range/Units White Blood Count 6.6 4.8-10.8 K/uL Red Blood Count 3.36 L 4.50-6.20 MIL/uL Hemoglobin 10.7 L 14.0-18.0 g/dL Hematocrit 30.8 L 42-54 % Mean Corpuscular Volume 91.7 79-99 fL Mean Corpuscular Hemoglobin 31.8 27.0-33.0 pg Mean Corpuscular Hemoglobin Concent 34.7 32.0-36.0 g/dL Red Cell Distribution Width 12.9 11.0-15.5 % Platelet Count 265 130-400 K/uL Mean Platelet Volume 10.1 7.5-10.5 fL Immature Granulocyte % (Auto) 0.5 0-1 % Neutrophils (%) (Auto) 55.6 40.0-77.0 % Lymphocytes (%) (Auto) 19.9 L 21.0-51.0 % Monocytes (%) (Auto) 10.5 3.0-13.0 % Eosinophils (%) (Auto) 12.7 H 0.0-8.0 % Basophils (%) (Auto) 0.8 0.0-5.0 % Neutrophils # (Auto) 3.7 1.8-7.7 K/uL Lymphocytes # (Auto) 1.3 1.0-4.8 K/uL Monocytes # (Auto) 0.7 0.1-1.0 K/uL Eosinophils # (Auto) 0.84 H 0.00-0.70 K/uL Basophils # (Auto) 0.05 0.00-0.20 K/uL Absolute Immature Granulocyte (auto 0.03 0-1 K/uL Nucleated Red Blood Cells 0.0 0.0-0.19 % Chemistry Labs: Test 07/22/24 11:10 07/21/24 15:59 07/21/24 09:00 Range/Units Whole Blood Glucose 319 #H 70-110 MG/DL Bedside Glucose Comment Notified Nurse Sodium Level 136 136-145 mmol/L Potassium Level 3.8 3.5-5.1 mmol/L Chloride Level 99 L 101-111 mmol/L Carbon Dioxide Level 32 21-32 mmol/L Blood Urea Nitrogen 21 H 7-18 mg/dL Creatinine 0.7 0.5-1.3 mg/dL Glomerular Filtration Rate Calc 95 >90 mL/min Random Glucose 204 H 70-105 mg/dL Total Calcium 8.3 L 8.5-10.1 mg/dL Magnesium Level 1.60 L 1.80-2.40 mg/dL DIAGNOSTICS / RADIOLOGY RESULTS: [ ] PLAN NEURO: Minimize central acting medications as possible. Maintain fall precautions, adequate lighting during the day PULMONARY: Supplemental 02 as needed. Maintain aspiration precautions at all times CARDIOVASCULAR: Follow hemodynamics. Vital signs per facility protocol Cardiology CV surgery GI & NUTRITION: Continue with nutritional support. Continue stool softeners and laxatives as needed. KIDNEYS & ELECTROLYTES: Strict monitoring of intake, output and overall fluid balance. Avoid nephrotoxic medications to the extent possible. Medications to be dosed according to renal function. Monitor electrolytes and replace as needed ENDOCRINE: Maintain blood glucose between 100-180 at all times. Hypoglycemia protocol in place INFECTIOUS DISEASE: Trend temperature, WBC and procalcitonin level Follow cultures, deescalate antibiotics as soon as possible. Panculture if new onset fever ONCOLOGY/HEMATOLOGY/COAGULATION: Monitor for s/s of bleeding Monitor hemoglobin, coagulation studies as needed SKIN: Pressure ulcer prevention per facility protocol Specialty mattress ORTHO/REHAB: Continue PT/OT Prophylaxis: Continue GI and DVT prophylaxis Code Status: Full Resuscitation Disposition: PCCU Other: Total patient care time exceeds 35 minutes excluding all procedures. SONIDO VIDAL HISTOPATHOLOGY TECHNICIAN Jul 22, 2024 12:32
[2024-07-22] MEDS: metFORmin HCL 500 MG TABLET PO SCH ×2 (12:48→21:24)
[2024-07-22] MEDS: INSULIN NPH 100 UNIT/ML 3ML SQ SCH (12:51)
[2024-07-22] MEDS: INSULIN humuLIN R 100 UNIT/ML 3ML SQ SCH (15:56)
[2024-07-22] MEDS ORDERED: INSULIN NPH 100 UNIT/ML 3ML SQ SCH (16:30)
[2024-07-23 01:53] VITALS: BP 112/71; PULSE 72; RESP 20; TEMP 98.9
[2024-07-23 03:45] VITALS: BP 113/50; PULSE 73; RESP 20; TEMP 98.1
[2024-07-23 03:51] LABS: BASOPHILS # (AUTO) 0.03 K/uL (0.00-0.20); BASOPHILS % (AUTO) 0.4 % (0.0-5.0); HEMATOCRIT 29.2 % (42-54); IMMATURE GRANULOCYTE ABSOLUTE 0.03 K/uL (0-1); LYMPHOCYTES # (AUTO) 1.6 K/uL (1.0-4.8); LYMPHOCYTES % (AUTO) 19.9 % (21.0-51.0); MEAN CORPUSCULAR HEMOGLOBIN 31.9 pg (27.0-33.0); MEAN CORPUSCULAR HGB CONC 34.9 g/dL (32.0-36.0); MEAN CORPUSCULAR VOLUME 91.3 fL (79-99); MONOCYTES # (AUTO) 0.9 K/uL (0.1-1.0); MONOCYTES % (AUTO) 10.8 % (3.0-13.0); NEUTROPHILS # (AUTO) 4.3 K/uL (1.8-7.7); NEUTROPHILS % (AUTO) 51.5 % (40.0-77.0); PLATELET COUNT (AUTO) 267 K/uL (130-400); RED CELL DISTRIBUTION WIDTH 12.8 % (11.0-15.5); WHITE BLOOD COUNT (AUTO) 8.3 K/uL (4.8-10.8)
[2024-07-23 04:15] LABS: CREATININE 0.7 mg/dL (0.5-1.3); MAGNESIUM 1.5 mg/dL (1.80-2.40); PHOSPHORUS 3.8 mg/dL (2.5-4.9); POTASSIUM 3.6 mmol/L (3.5-5.1)
[2024-07-23] MEDS: PoTASSium chl 10% ELIXIR 20MEQ 20 MEQ/15 ML UDCUP PO PRN (05:17)
--- NOTE | 2024-07-23 07:05 | PN ---
[facility] Cardiology Progress Note CARDIOLOGY PROGRESS NOTE JULY 23, 2024 Problems: 1. Non ST-elevation myocardial infarction 2. Multivessel CAD with left main involvement and LV ejection fraction of 40% a nd mild aortic stenosis with a 10 mm peak gradient and left heart catheterization 3. Left carotid bruit 4. History of lacunar infarcts May 2024 5. Hypertension 6. Diabetes mellitus type 2 7. Dyslipidemia Over the weekend the patient has been tapered off intravenous nitroglycerin. His morning blood pressure is 1 13/50 heart rate is in the 70s the patient is afebrile. Hemoglobin is 10.2 platelet count [id number]. Potassium 3.6 BUN 21 creatinine 0.7. The patient is receiving aspirin atorvastatin Lovenox for DVT prophylaxis famotidine insulin scale isosorbide mononitrate lisinopril metformin potassium protocol I will add metoprolol succinate 12.5 mg daily to his regimen for additional myocardial protection. As noted the patient's aortic stenosis was mild at cardiac catheterization with a 10 mm gradient and ejection fraction of 40%. In addition the patient is a 2D echocardiogram showed a mean aortic gradient of only 7 mm Hg and valve area of 1.5 cm2 again consistent with mild aortic stenosis. The patient has been re-evaluated by surgery and have recommended a dobutamine stress echo for further evaluation of the aortic valve. They also feel that he is a poor candidate for open heart surgery. In discussions with the patient himself yesterday he stated he did not want an operation. He again today he states he does not want an operation. He has been pain-free overnight. I do not believe this any clinical benefit to proceeding with a dobutamine stress echo at this point and we will cancel the study. I have explained to the patient that when discharged he will be at high risk for myocardial infarction and given his left main disease. Despite this see requests medical management only. I would consider hospice evaluation prior to discharge. We will re-evaluate clinically if needed. I would agree that he is a high-risk patient for surgical intervention given his frail status. He weighs 46 kilos. WOLFGANG LOMELI MD Jul 23, 2024 07:05
[2024-07-23 08:00] VITALS: O2SAT 100
[2024-07-23] MEDS ORDERED: MAGNESIUM 2GM PREMIX 50ML 50 ML IV SCH (08:00)
[2024-07-23] MEDS: metOPROLol sucCINATE 25 MG TAB.SR.24H PO SCH (08:12)
[2024-07-23] MEDS: metFORmin HCL 500 MG TABLET PO SCH (08:12)
[2024-07-23] MEDS ORDERED: NPH,100V SQ (08:35)
[2024-07-23] MEDS ORDERED: NITR0.4T50 SL (08:35)
[2024-07-23] MEDS ORDERED: METF-444 PO (08:35)
[2024-07-23] MEDS ORDERED: ASPI-1005 PO (08:35)
[2024-07-23] MEDS ORDERED: LISI2.5T13 PO (08:35)
[2024-07-23] MEDS ORDERED: METO25TA3 PO (08:35)
--- NOTE | 2024-07-23 08:39 | DS ---
Discharge Summary Hospital Course Summary: The patient initially admitted to the hospital on July 18, 2024 with the following history of the present illness: his is 78-year-old male with past medical history of CAD, hypotension, hyperlipidemia, diabetes mellitus, history of stroke type 2 who presented to the hospital secondary to chest pain. Patient history is obtained from patient and from chart review. Patient initially presented to [facility] secondary to chest pain. Patient was previously hospitalized admission hospital around a month ago in May secondary to chest pain. During that admission patient underwent heart catheterization by Cardiology and was found to have multivessel disease. Patient is course was complicated by right lacunar infarct in the right cerebellum. Patient was recommended to recover from stroke and then follow up with Cardiothoracic surgery for consideration of CABG. Patient today presented to ER admission secondary to midsternal chest pain. Patient states the pain would radiate towards is left lower extremity. He denies any paresthesias, numbness, falls, syncopal episode, abdominal pain, nausea, vomiting. Patient lives alone and uses a cane for ambulation. Denied any fever, chills, cough, shortness of breath, new onset upper or lower extremity weakness. Patient states he does have mild weakness on the left lower extremity. Labs and admission [facility] showed white count of 8.7, hemoglobin was 12.5, platelet count is 318k, sodium was 134, potassium was 3.6, creatinine was 0.8, blood glucose was 394. Patient was given aspirin, heparin drip. Cardiology was consulted and admission and recommended patient to be transferred to [facility] for evaluation of CABG. chest x-ray showed No acute findings Patient had undergone a previous heart catheterization by Dr. Collier on 05/29/2024 which showed 1. Left main coronary artery is medium in caliber heavily calcified with 50% distal disease. It bifurcates into left anterior descending artery and left circumflex artery. 2. Left anterior descending artery is a medium caliber vessel wrapping around the apex with 80% mid segmental disease. First diagonal is medium in caliber with mild disease not well visualized. The 2nd diagonal is tiny with 90% ostial disease. The 3rd diagonal is small in caliber with 50% disease 3. Left circumflex artery is a medium caliber vessel with 50% ostial disease. First obtuse marginal is medium in caliber with 30% mid segmental disease. Second obtuse marginal unless medium in caliber with 90% tight mid segmental disease and 40% distal disease in one of its lower branch. 4. Right coronary artery is heavily calcified in the proximal segment. It is a large caliber dominant vessel with 70% proximal disease. It gives off small to medium caliber posterior descending artery which has 50% proximal disease and 70% mid segment disease where the vessel is tortuous and proximal 50% PLV disease Patient was recommended to be evaluated in [facility] for consideration of CABG During the course of the hospitalization, the patient was evaluated by Cardiothoracic surgeon, recommended dobutamine stress echo to assess aortic valve. Patient at high risk for surgical intervention. Cardiology consultation requested, underwent left heart catheterization. Patient's aortic stenosis mild at cardiac catheterization with a 10 mm grading and ejection fraction 40%. In addition, 2D echo showed mean aortic bleeding only 7 mm, valve area of 1.5 cm, again consistent with mild aortic stenosis. Patient was re-evaluated by surgery, recommended dobutamine stress echo for further evaluation, however per surgery, they feel patient is a poor candidate for open heart surgery. Per Cardiology, further discussion, patient stated he did not want to pursue any surgical intervention. Patient has remained pain-free. Per Cardiology, do not feel there is any clinical benefit to proceed with dobutamine stress echo at this point. Edema was canceled. Explained to the patient underwent he gets discharged home he is at high risk for myocardial infarction and given his left main disease. Patient understood all the information provided, he is alert oriented x3, again he would like to proceed only with medical management. I have requested case manager specialist consultation to discuss the possibility of going home with hospice. Today the patient is alert oriented x3, hemodynamically stable, he denied chest pain, shortness shortness for breath, no nausea, no vomiting, no abdominal discomfort. Fabric Pattern Grader(s): Cardiology and Cardiothoracic surgeon Procedure(s): PROCEDURE NOTE Name: MANOJ BLANTON Acct: [id number] MR: [id number] : 1945 Admit Date: 07/18/24 TAD LOMELI MD [facility] [address] [place] [id number] Cath Procedure Report CATH PROCEDURE REPORT CARDIAC CATHETERIZATION REPORT Date of Service: Jul 19, 2024 This patient was transferred for aortocoronary bypass [place] [id number] consistent with non STEMI on admission. After informed consent he was prepped and draped in the usual fashion. He received 10 cc of 2% xylocaine in the right inguinal area. A six Maldivian sheath was introduced into the right femoral artery using modified Seldinger technique. A Sheri four right six Maldivian diagnostic catheter was advanced over guidewire to the aortic root. Wire was removed and catheter engaged into the [place] right coronary artery which was visualized multiple planes. The catheter was exchanged over a wire for a Sheri four left six Maldivian diagnostic catheter. This was advanced to the aortic root and wire was removed. The catheter was engaged in the left main coronary artery left coronary system was visualized multiple planes. The catheter was then exchanged over a wire for a pigtail catheter which was advanced over guidewire. The catheter would not cross the aortic valve and the J-wire was exchanged for a straight wire which was utilized across the valve. Left ventricular end-diastolic pressure was measured and a ventriculogram in the MALIK projection was performed. A pullback with continuous hemodynamic monitoring was performed and catheter was removed. ACT postprocedure was less than 200. A sheathogram performed and Angio-Seal closure device applied. Findings: The right coronary artery is a right-dominant vessel. There was an 80% ostial stenosis followed by a 70% proximal stenosis. The posterolateral branch has a long 50% proximal stenosis. The PDA has a proximal 50 and proximal 70% stenosis. The left main coronary artery has a 50% distal stenosis. There was a 50% ostial LAD stenosis and a long 70% ulcerated mid LAD stenosis with normal ACACIA flow. The diagonal artery was free of obstruction. There was a ramus branch which is free of obstruction. The circumflex artery has an 80% ostial stenosis. First large branching obtuse marginal artery has a proximal 80% stenosis. Left ventriculogram demonstrates mild hypokinesis of the anterior wall with global ejection fraction around 40%. There was trace mitral regurgitation. Aortic stenosis was mild with a 10 mm peak to peak gradient. Surgical opinion will be obtained. 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 Patient agreed with plan and understood the information provided. Home Medications: Reported Medications Atorvastatin Calcium (LIPITOR) 80 Mg Tablet, 1 TAB PO HS for 30 Days, #30 TAB 0 Refills 07/18/24 Aspirin (ASPIRIN 81MG CHEW TAB) 81 Mg Tab.chew, 1 TAB PO DAILY for 30 Days, #30 TAB 0 Refills 07/18/24 Metoprolol Succinate (Metoprolol Succinate) 25 Mg Tab.er.24h, 1 TAB PO DAILY for 30 Days, #30 TAB 0 Refills 07/18/24 Isosorbide Mononitrate (Isosorbide Mononitrate ER) 30 Mg Tab.er.24h, 1 TAB PO DAILY for 30 Days, #30 TAB 0 Refills 07/18/24 Time spent arranging discharge: 31-60 minutes SCARLETT REEDER MD Jul 23, 2024 08:39
[2024-07-23 09:18] VITALS: BP 119/69; PULSE 65; RESP 20; TEMP 98.7
--- NOTE | 2024-07-23 17:34 | PN ---
SUBJECTIVE: A 78-year-old status post cardiac catheterization. 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 The patient is 78. He has ejection fraction of about 30%, risk factors for morbidity and mortality. I have described to the patient and the patient refused to have surgery and was discharged this morning. We will be available as needed. TID: [id number] RECEIPT: [id number]
== END 2024-07-23 11:00 | disposition home or self-care (01) | DRG 282 ==
LOC: 2AH 17:11 → OBSVTOIN 17:11 → 2CV 07-19 03:11 → 2AH 07-20 10:35
PROVIDERS: ADMIT Internal Medicine; ATTEND Internal Medicine
PROC: 4A023N7 Measurement of Cardiac Sampling and Pressure, Left Heart, Percutaneous Approach (ICD-10-PCS; principal; 2024-07-19)
PROC: B2111ZZ Fluoroscopy of Multiple Coronary Arteries using Low Osmolar Contrast (ICD-10-PCS; 2024-07-19)
PROC: B2151ZZ Fluoroscopy of Left Heart using Low Osmolar Contrast (ICD-10-PCS; 2024-07-19)
PROC: B41F1ZZ Fluoroscopy of Right Lower Extremity Arteries using Low Osmolar Contrast (ICD-10-PCS; 2024-07-19)
DX: I21.4 Non-ST elevation (NSTEMI) myocardial infarction (principal); E87.6 Hypokalemia; E11.65 Type 2 diabetes mellitus with hyperglycemia; I25.110 Atherosclerotic heart disease of native coronary artery with unstable angina pectoris; E78.5 Hyperlipidemia, unspecified; E83.42 Hypomagnesemia; I11.0 Hypertensive heart disease with heart failure; I50.9 Heart failure, unspecified; Z53.20 Procedure and treatment not carried out because of patient's decision for unspecified reasons; Z79.82 Long term (current) use of aspirin; Z79.899 Other long term (current) drug therapy; Z86.73 Personal history of transient ischemic attack (TIA), and cerebral infarction without residual deficits; Z95.1 Presence of aortocoronary bypass graft; Z87.891 Personal history of nicotine dependence
CPT/HCPCS: 36415; 36600; 71045; 73502; 73562; 80048; 80053; 82435; 82803; 82947; 82948; 83036; 83605; 83735; 84100; 84132; 84145; 84295; 84443; 84484; 85018; 85025; 85347; 85730; 86140; 93005; 93306; 93458; 93880; 93925; C1760; C1769; C1894; G0378; J0583; J1644; J1650; J1815; J2250; J3010; J3475; J3480; J3490; Q9967; Q9965